=== PATIENT | female | born 1950 | race Caucasian/White ===

== ENCOUNTER 2023-06-11 07:32 | Outpatient (RCR) | payer MEDICARE ==
[2023-05-21 09:17] LABS: BASOPHILS % (AUTO) 1 % (0-10); EOSINOPHILS # (AUTO) 0.1 10^3/uL (0.0-0.3); EOSINOPHILS % (AUTO) 2 % (0-10); HEMATOCRIT 38 % (35-52); HEMOGLOBIN 12.3 g/dL (11.5-16.0); LYMPHOCYTES # (AUTO) 1.8 10^3/uL (1.0-4.0); LYMPHOCYTES % (AUTO) 26 % (12-44); MEAN CORPUSCULAR HEMOGLOBIN 32 pg (25-34); MEAN CORPUSCULAR HGB CONC 33 g/dL (32-36); MEAN CORPUSCULAR VOLUME 99 fL (80-99); MEAN PLATELET VOLUME 9.1 fL (9.0-12.2); MONOCYTES # (AUTO) 0.8 10^3/uL (0.0-1.0); MONOCYTES % (AUTO) 11 % (0-12); NEUTROPHILS # (AUTO) 4.2 10^3/uL (1.8-7.8); NEUTROPHILS % (AUTO) 60 % (42-75); PLATELET COUNT 205 10^3/uL (130-400)
[2023-05-21 09:39] LABS: ALBUMIN 4.1 GM/DL (3.2-4.5); BILIRUBIN,TOTAL 0.3 MG/DL (0.1-1.0); CALCIUM 9.5 MG/DL (8.5-10.1); CREATININE SERUM 0.9 MG/DL (0.60-1.30); POTASSIUM 3.9 MMOL/L (3.6-5.0); TOTAL PROTEIN 6.6 GM/DL (6.4-8.2)
[2023-05-21 09:57] VITALS: BP 166/93
[~2023-06-11] VITALS: Ht 157 cm; Wt 55.3 kg
[~2023-06-11 07:32] MED LIST: ALPR0.254 PO; AMLO-250 PO; ASPI-808 PO; ATROPINE INJ 0.4 MG/ML SDV IV SCH; BEVACIZUMAB BVZR IV SCH; D5W IV SCH; DEXAMETHASONE SODIUM PHOSPHATE IV SCH; DOCU-143 PO; DOXY100T2 PO; FAMOTIDINE INJ 20MG/2ML VIAL IV PRN; FERR325T24 PO; FLUOROURACIL IV SCH; FOSAPREPITANT (CANCER CENTER) 150 MG in NS (IVPB) CANCER CENTER ONLY 150 ML IV SCH; GLIM2TAB4 PO; HEParin (CENTRAL IV FLUSH) 500 UNIT/5 ML SYR IV PRN; IRINOTECAN HCL IV SCH; KETO10TA PO; LISI20TA26 PO; METF-399 PO; NS IV 1000 ML (CANCER CTR) IV SCH; NS IV SCH; PALONOSETRON HCL IV SCH; PANT40TA2 PO; PRAV20TA3 PO; SITA100T12 PO; diphenhydrAMINE 25 MG TABLET PO SCH
[2023-06-11 11:00] LABS: BASOPHILS # (AUTO) 0.1 10^3/uL (0.0-0.1); BASOPHILS % (AUTO) 1 % (0-10); EOSINOPHILS # (AUTO) 0.1 10^3/uL (0.0-0.3); EOSINOPHILS % (AUTO) 1 % (0-10); HEMATOCRIT 39 % (35-52); HEMOGLOBIN 12.4 g/dL (11.5-16.0); LYMPHOCYTES # (AUTO) 1.6 10^3/uL (1.0-4.0); LYMPHOCYTES % (AUTO) 18 % (12-44); MEAN CORPUSCULAR HEMOGLOBIN 32 pg (25-34); MEAN CORPUSCULAR HGB CONC 32 g/dL (32-36); MEAN CORPUSCULAR VOLUME 100 fL (80-99); MEAN PLATELET VOLUME 9.2 fL (9.0-12.2); MONOCYTES % (AUTO) 11 % (0-12); NEUTROPHILS # (AUTO) 6.4 10^3/uL (1.8-7.8); NEUTROPHILS % (AUTO) 70 % (42-75); PLATELET COUNT 239 10^3/uL (130-400); WHITE BLOOD COUNT 9.2 10^3/uL (4.3-11.0)
[2023-06-11 11:25] LABS: ALBUMIN 4.1 GM/DL (3.2-4.5); BILIRUBIN,TOTAL 0.3 MG/DL (0.1-1.0); CALCIUM 9.2 MG/DL (8.5-10.1); CREATININE SERUM 0.98 MG/DL (0.60-1.30); POTASSIUM 4.5 MMOL/L (3.6-5.0); TOTAL PROTEIN 6.7 GM/DL (6.4-8.2)
[2023-06-15] MEDS ORDERED: AMLO2.5T4 PO (14:05)
[2023-06-15] MEDS ORDERED: METF-399 PO (14:05)
[2023-06-15] MEDS ORDERED: ACHD5005 PO (14:05)
[2023-06-15] MEDS ORDERED: CETI10CA PO (14:05)
[2023-06-15] MEDS ORDERED: ONDA8TAB13 SL (14:05)
[2023-06-15] MEDS ORDERED: LISI20TA26 PO (14:05)
[2023-06-15] MEDS ORDERED: MORP30PC IV (14:05)
[2023-06-15] MEDS ORDERED: PRAV20TA3 PO (14:05)
[2023-06-15] MEDS ORDERED: ALPR1TAB7 PO (14:05)
[2023-06-15] MEDS ORDERED: GLIM2TAB4 PO (14:05)
[2023-06-15] MEDS ORDERED: ACYC5CRE8 TP (14:05)
== END 2023-06-14 | disposition home or self-care (01) ==
LOC: ONC 07:32 → MERGE 07:32
PROVIDERS: ATTEND Internal Medicine Hematology & Oncology
DX: Z51.11 Encounter for antineoplastic chemotherapy (principal); Z45.2 Encounter for adjustment and management of vascular access device; C18.2 Malignant neoplasm of ascending colon; C77.2 Secondary and unspecified malignant neoplasm of intra-abdominal lymph nodes; D50.8 Other iron deficiency anemias; I25.10 Atherosclerotic heart disease of native coronary artery without angina pectoris; F41.1 Generalized anxiety disorder; K29.70 Gastritis, unspecified, without bleeding
CPT/HCPCS: 80053; 82378; 85025; 96360; 96367; 96375; 96411; 96413; 96417; 96521; G0463; 36591; 99214

== ENCOUNTER 2023-06-15 13:19 | Outpatient (CLI) | payer MEDICARE ==
[~2023-06-15] VITALS: Ht 157.5 cm; Wt 54.6 kg
[~2023-06-15 13:19] MED LIST changes: -ATROPINE INJ 0.4 MG/ML SDV IV SCH; -BEVACIZUMAB BVZR IV SCH; -D5W IV SCH; -DEXAMETHASONE SODIUM PHOSPHATE IV SCH; -FAMOTIDINE INJ 20MG/2ML VIAL IV PRN; -FLUOROURACIL IV SCH; -FOSAPREPITANT (CANCER CENTER) 150 MG in NS (IVPB) CANCER CENTER ONLY 150 ML IV SCH; -HEParin (CENTRAL IV FLUSH) 500 UNIT/5 ML SYR IV PRN; -IRINOTECAN HCL IV SCH; -NS IV 1000 ML (CANCER CTR) IV SCH; -NS IV SCH; -PALONOSETRON HCL IV SCH; -diphenhydrAMINE 25 MG TABLET PO SCH
[2023-06-15] MEDS ORDERED: LISI20TA26 PO (14:05)
[2023-06-15] MEDS ORDERED: MORP30PC IV (14:05)
[2023-06-15] MEDS ORDERED: CETI10CA PO (14:05)
[2023-06-15] MEDS ORDERED: ALPR1TAB7 PO (14:05)
[2023-06-15] MEDS ORDERED: GLIM2TAB4 PO (14:05)
[2023-06-15] MEDS ORDERED: ACHD5005 PO (14:05)
[2023-06-15] MEDS ORDERED: METF-399 PO (14:05)
[2023-06-15] MEDS ORDERED: ONDA8TAB13 SL (14:05)
[2023-06-15] MEDS ORDERED: AMLO2.5T4 PO (14:05)
[2023-06-15] MEDS ORDERED: ACYC5CRE8 TP (14:05)
[2023-06-15] MEDS ORDERED: PRAV20TA3 PO (14:05)
== END 2023-06-15 15:02 | disposition home or self-care (01) ==
LOC: PREOP 13:19
PROVIDERS: ATTEND Surgery
DX: Z01.818 Encounter for other preprocedural examination (principal)

== ENCOUNTER 2023-06-20 06:53 | Day surgery (SDC) | payer MEDICARE ==
[~2023-06-20] VITALS: Ht 158 cm; Wt 54.6 kg
[2023-06-20] VITALS (13 sets, daily range): BP systolic 145–185; BP diastolic 67–84
[~2023-06-20 06:53] MED LIST changes: +ACHD5005 PO; +ACYC5CRE8 TP; +ALPR1TAB7 PO; +AMLO2.5T4 PO; +CETI10CA PO; +MORP30PC IV; +ONDA8TAB13 SL
[2023-06-20] MEDS ORDERED: ceFAZolin INJECTION 2,000 MG in NS (IVPB) 50 ML 50 ML IV ONE (07:15)
[2023-06-20] MEDS ORDERED: LACTATED RINGERS 1,000 ML 1,000 ML IV PRN (07:15)
[2023-06-20] MEDS ORDERED: SEVOFLURANE (ULTANE) 15 ML INHAL SOLN ONE ×2 (07:43→10:59)
[2023-06-20] MEDS ORDERED: LIDOCAINE PF 2% 5 ML VIAL ONE (07:43)
[2023-06-20] MEDS ORDERED: ROCURONIUM 50 MG/5 ML VIAL IV ONE (07:43)
[2023-06-20] MEDS ORDERED: ONDANSETRON INJECTION 4 MG/2 ML (SDV) ONE (07:43)
[2023-06-20] MEDS ORDERED: fentaNYL INJECTION 100 MCG/2 ML VIAL ONE (07:43)
[2023-06-20] MEDS ORDERED: proPOfol INJECTION 200 MG/20 ML VIAL IV ONE (07:43)
[2023-06-20] MEDS ORDERED: CATHETER FLUSH 10 ML SYR IVP PRN (07:45)
--- NOTE | 2023-06-20 08:37 | Progress Note-Pre Operative ---
Pre-Operative Progress Note Date of Available H&P: Jun 14, 2023 Date H&P Reviewed: Jun 20, 2023 Time H&P Reviewed: 08:31 History & Physical: H&P Reviewed, Patient Examed, No changes noted Pre-Operative Diagnosis: Incarcerated Ventral/Incisional hernia JOANN HANEY DO Jun 20, 2023 08:37
[2023-06-20] MEDS ORDERED: LIDOCAINE/EPI 1%-1:200,000 (XYLOCAINE) 30 ML VIAL ONE (09:03)
[2023-06-20] MEDS ORDERED: LIDOCAINE/EPI 1%-1:200,000 (XYLOCAINE) 30 ML VIAL INJ ONE (10:05)
--- NOTE | 2023-06-20 10:55 | Progress Note-Post Operative ---
Post-Operative Progess Note Surgeon (s)/Research Physiologist (s) Surgeon JOANN HANEY DO Research Physiologist: Winsome Pre-Operative Diagnosis Incarcerated Ventral/Incisional hernia Post-Operative Diagnosis Same Procedure & Operative Findings Date of Procedure 06/20/23 Procedure Performed/Findings PROCEDURE: Laparoscopic Ventral/Incisional hernia repair with mesh - Robotic COMPLICATIONS: None. INDICATIONS: The patient is a 72yo female with an incarcerated ventral/incisional hernia, w hich has continued to increase in size and cause extreme discomfort; she was even having pain today before procedure. The patient was explained the risk and benefits of the procedure and wished to proceed with the procedure. Consent was signed on the chart. DESCRIPTION OF PROCEDURE: The patient was taken into the operating suite, prepped and draped in sterile fashion. Surgical pause was performed. Local anesthetic was infiltrated in left upper quadrant. A #11 blade scalpel was used to make a small skin incision. Cautery was used to dissect down to the fascia, which was then scored and divided the muscle, went through the posterior sheath and a balloon trocar was inserted into the abdomen. The abdomen was then insufflated. There was some omentum jose ck in the fascial defect, easily came out and then measured defect to be approximately 9cm. An 8 mm robotic trocar was placed in the left lower quadrant under visualiation and another 8 mm trocar was placed across from umbilicus. The defect was then closed using 0 Strattafix running suture; it was so large I used two. One from the top to about half way and then another from the bottom of the incision and then back up. Elected to use a [id number] oval Echo Ventralight mesh which was inserted in the abdomen grabbed through a stab incision at top of previous incision. Placed a 5mm Versa-step port in the right mid abdomen, under direct visualization. The balloon was inflated on the mesh. Circumferential tacks were placed with a SecureStrap Tacker. The balloon was then removed and inner crown was created as well. The mesh was tacked with pressure being decreased. The 12 mm fascial defect was then closed using 0 Vicryl in a figure of eight fashion. The abdomen was then desufflated,the trocars were removed. The skin was then closed using 4-0 Monocryl in a running subcuticular fashion. The abdomen was washed and dried and Skin Affix was placed over the incisions. The patient tolerated procedure well without any complications. She was taken to recovery room in stable condition. Dr. Schumacher assisted on this case helping to make incisions, close incisions, pass suture and help with tacking mesh. Anesthesia Type GET Estimated Blood Loss Estimated blood loss (mL): scant Specimens/Packing Specimens Removed none JOANN HANEY DO Jun 20, 2023 10:55
[2023-06-20] MEDS ORDERED: ACHD5005 PO (10:56)
--- NOTE | 2023-06-20 10:58 | Discharge Inst-Surgical ---
Discharge Inst-Surgical Depart Medication/Instructions New, Converted or Re-Newed RX: Transmitted to Pharmacy Patient Instructions Follow up Appt: Make appointment for 1 week. [phone] Instructions: No lifting greater than 20 pounds. No strenuous activity. May shower in 24 hours, no tub bath or soaking. Use incentive spirometer at home as directed. No Smoking Skin/Wound Care: May remove bandages in am. You need to leave the Dermabond on incision it will fall off on it's own. Symptoms to Report: Appetite Changes, Extremity Discoloration, Numbness/Tingling, Swelling Increased, Bleeding Excessive, Eyesight Changes, Pain Increased, Urine Color Change, Constipation(Persistent), Fever over 101 degree F, Pain/Pressure in chest, Urinating Difficulty, Cough Up/Vomit Blood, Heart Beat Irreg/Pounding, Pain/Pressure in jaw, Cramps in feet or legs, Lightheadedness, Pain/Pressure in shoulder, Diarrhea(Persistent), Memory Changes Suddenly, Questions/Concerns, Weight gain consecutive days, Dizziness/Fainting, Nausea/Vomiting, Shortness of Breath, Weight gain over 2 pounds If questions or concerns contact your physician Or seek help at emergency department. Activity Activity as Tolerated: Yes Activity Instructions: Avoid Stress to Incision Driving Instructions: No Driving/Refer to Dr. Roman Discharge Diet: No Restrictions Diet After 24 Hours: Clear Liquid if Nauseous If Any Problems/Questions/Issu: Contact Your Physician, Go to Emergency Room Skin/Wound Care Infection Signs and Symptoms: Increased Redness, Foul Odor of Wound, Increased Drainage, Skin Itchy or Has a Rash, Increased Swelling, Temperature Above 101 F Wound Care Comment: heating pad to shoulder or neck tonight for pain Bathing Instructions: Shower Stitches/[place]/Dermabond Dis: Dermabond Ice Pack: Ice On and Off Site JOANN HANEY DO Jun 20, 2023 10:58
--- NOTE | 2023-06-20 11:06 | Anesthesia-General Post-Op ---
General Patient Condition Mental Status/LOC: Same as Preop Cardiovascular: Satisfactory Nausea/Vomiting: Absent Respiratory: Satisfactory Pain: Controlled Complications: Absent Post Op Complications Complications None Follow Up Care/Instructions Patient Instructions None needed. Anesthesia/Patient Condition Patient Condition Patient is doing well, no complaints, stable vital signs, no apparent adverse anesthesia problems. No complications reported per nursing. RAÚL MCDANIEL CRNA Jun 20, 2023 11:06
[2023-06-20] MEDS: ONDANSETRON INJECTION 4 MG/2 ML (SDV) IVP PRN ×3 (11:15→20:31)
[2023-06-20] MEDS ORDERED: MEPERIDINE INJ 50 MG/ML VIAL IVP ONE (11:15)
[2023-06-20] MEDS ORDERED: morphine INJ 10 MG/ML 1ML (SYR OR VIAL) IVP ONE (11:15)
[2023-06-20] MEDS ORDERED: HYDROcodone/ACETAMINOPHEN 5 MG/325 MG TABLET ONE (13:27)
[2023-06-20] MEDS ORDERED: HYDROcodone/ACETAMINOPHEN 5 MG/325 MG TABLET PO ONE (13:45)
[2023-06-20] MEDS ORDERED: morphine INJ 10 MG/ML 1ML (SYR OR VIAL) ONE (13:56)
[2023-06-20] MEDS ORDERED: ALPRAZolam 0.25 MG TABLET PO ONE ×2 (14:00→21:30)
[2023-06-20] MEDS ORDERED: morphine INJ 4 MG/ML 1 ML (VIAL/SYRINGE) IVP ONE (14:00)
[2023-06-20] MEDS ORDERED: morphine INJ 10 MG/ML 1ML (SYR OR VIAL) IVP PRN (14:45)
[2023-06-20] MEDS ORDERED: LevoFLOXacin 250 MG TABLET PO NR (16:15)
[2023-06-20] MEDS: LACTATED RINGERS 1,000 ML 1,000 ML IV SCH ×2 (16:24→22:57)
[2023-06-20] MEDS: morphine INJ 4 MG/ML 1 ML (VIAL/SYRINGE) IV PRN ×2 (16:25→19:59)
[2023-06-20] MEDS ORDERED: amLODIPine 5 MG TABLET PO NR (19:00)
[2023-06-20 20:12] LABS: BASOPHILS % (AUTO) 0 % (0-10); EOSINOPHILS % (AUTO) 0 % (0-10); HEMATOCRIT 35 % (35-52); LYMPHOCYTES % (AUTO) 14 % (12-44); MEAN CORPUSCULAR HEMOGLOBIN 32 pg (25-34); MEAN CORPUSCULAR HGB CONC 34 g/dL (32-36); MEAN CORPUSCULAR VOLUME 95 fL (80-99); MEAN PLATELET VOLUME 9.6 fL (9.0-12.2); MONOCYTES # (AUTO) 1.1 10^3/uL (0.0-1.0); MONOCYTES % (AUTO) 8 % (0-12); NEUTROPHILS # (AUTO) 11.3 10^3/uL (1.8-7.8); NEUTROPHILS % (AUTO) 78 % (42-75); PLATELET COUNT 225 10^3/uL (130-400); WHITE BLOOD COUNT 14.6 10^3/uL (4.3-11.0)
[2023-06-20] MEDS ORDERED: ALPRAZolam 0.25 MG TABLET ONE (20:43)
[2023-06-20] MEDS ORDERED: DEXTROSE 50% 50 ML (IMS) SYR ONE (21:22)
[2023-06-20] MEDS ORDERED: ONDANSETRON INJECTION 4 MG/2 ML (SDV) IVP ONE (21:30)
[2023-06-20] MEDS ORDERED: DEXTROSE 50% 50 ML (IMS) SYR IV PRN (21:30)
[2023-06-21] MEDS: morphine INJ 4 MG/ML 1 ML (VIAL/SYRINGE) IV PRN ×4 (01:39→11:40)
[2023-06-21] MEDS: LACTATED RINGERS 1,000 ML 1,000 ML IV SCH ×2 (01:40→12:27)
[2023-06-21] MEDS: ONDANSETRON INJECTION 4 MG/2 ML (SDV) IVP PRN ×3 (01:40→14:12)
[2023-06-21 04:00] VITALS: BP 137/67
[2023-06-21 06:03] LABS: BASOPHILS % (AUTO) 0 % (0-10); EOSINOPHILS % (AUTO) 0 % (0-10); HEMATOCRIT 35 % (35-52); HEMOGLOBIN 11.9 g/dL (11.5-16.0); LYMPHOCYTES # (AUTO) 1.4 10^3/uL (1.0-4.0); LYMPHOCYTES % (AUTO) 10 % (12-44); MEAN CORPUSCULAR HEMOGLOBIN 32 pg (25-34); MEAN CORPUSCULAR HGB CONC 34 g/dL (32-36); MEAN CORPUSCULAR VOLUME 95 fL (80-99); MEAN PLATELET VOLUME 9.6 fL (9.0-12.2); MONOCYTES # (AUTO) 1.3 10^3/uL (0.0-1.0); MONOCYTES % (AUTO) 10 % (0-12); NEUTROPHILS # (AUTO) 10.5 10^3/uL (1.8-7.8); NEUTROPHILS % (AUTO) 79 % (42-75); PLATELET COUNT 196 10^3/uL (130-400); WHITE BLOOD COUNT 13.3 10^3/uL (4.3-11.0)
[2023-06-21 06:37] LABS: ALBUMIN 3.5 GM/DL (3.2-4.5); BILIRUBIN,TOTAL 0.4 MG/DL (0.1-1.0); CALCIUM 8.7 MG/DL (8.5-10.1); CREATININE SERUM 0.76 MG/DL (0.60-1.30); POTASSIUM 4.1 MMOL/L (3.6-5.0); TOTAL PROTEIN 5.7 GM/DL (6.4-8.2)
[2023-06-21] MEDS ORDERED: metFORMIN 500 MG TABLET PO SCH (07:00)
[2023-06-21] MEDS ORDERED: GLIMEPIRIDE 2 MG TABLET PO SCH (07:00)
[2023-06-21 07:17] VITALS: BP 155/71
--- NOTE | 2023-06-21 07:29 | Progress Note - Surgery ---
TOMMY CARLSON 06/21/23 0729: Subjective Date Seen by a Provider: Jun 21, 2023 Time Seen by a Provider: 07:23 Subjective/Events-last exam Pt states she feels very poorly, in pain rated at 9/10 at hernia repair site. Pt states if she can relax, it gets better, but then it tenses up like a muscle spa sm and is very painful. Pain does not radiate anywhere else. Pt states the pain feels like you haven't worked out in a long time and then you work out and get really sore, except 100x worse, a sore pain. Pain is worse when she moves. Pt has only drank water since surgery and nothing to eat. Pt has not had a BM since surgery. Pt has been able to urinate since surgery. Pt states pain was pretty bad before the surgery but feels worse now. Pt says pain was in RLQ and now it is localized to where the surgery was and pain in RLQ is gone. Pt states she is on morphine and it helps, but it is not enough when she has to cough or move. Objective Exam Vital Signs Date Time Temp Pulse Resp B/P (MAP) Pulse Ox O2 Delivery O2 Flow Rate FiO2 06/21/23 07:17 36.2 80 17 155/71 (99) 94 Room Air 06/21/23 04:00 36.4 81 18 137/67 (90) 94 Room Air 06/20/23 23:38 36.4 51 18 145/67 (93) 95 Room Air 06/20/23 19:59 36.2 75 16 185/76 (112) 96 Room Air 06/20/23 19:50 Room Air 06/20/23 16:00 36.1 77 17 185/73 (110) 98 Room Air 06/20/23 15:19 Room Air 06/20/23 12:55 36.1 75 22 169/79 (109) 100 Room Air 10.00 10.00 06/20/23 12:25 36.1 75 22 169/79 (109) 100 Room Air 10.00 10.00 06/20/23 12:00 36.1 75 22 169/79 100 Room Air 06/20/23 12:00 Room Air 06/20/23 11:50 36.1 18 166/77 (106) 99 Room Air 06/20/23 11:45 Room Air 9/6/23 11:40 21 160/73 (102) 100 Room Air 06/20/23 11:30 17 162/76 (104) 100 OxyMask 10.00 06/20/23 11:30 OxyMask 10.00 06/20/23 11:20 19 154/74 (100) 100 OxyMask 10.00 06/20/23 11:15 OxyMask 10.00 06/20/23 11:10 16 159/71 (100) 100 OxyMask 10.00 06/20/23 11:00 OxyMask 10.00 06/20/23 11:00 36.1 16 165/84 (111) 100 OxyMask 10.00 06/20/23 07:57 35.8 75 18 146/71 (96) 99 Room Air I & O 06/21/23 07:00 Intake Total 1250 ml Output Total 1000 ml Balance 250 ml Capillary Refill : General Appearance: Moderate Distress Respiratory: Chest Non Tender, Lungs Clear, Normal Breath Sounds, No Accessory Muscle Use, No Respiratory Distress Cardiovascular: Regular Rate, Rhythm, No Murmur Peripheral Pulses: 2+ Carotid (R), 2+ Carotid (L), 2+ Dorsalis Pedis (R), 2+ Left Dors-Pedis (L), 2+ Radial Pulses (R), 2+ Radial Pulses (L) Gastrointestinal: no organomegaly, no pulsatile mass (hard to visualize site through bandages), tenderness (over hernia repair site, no where else) Neurologic/Psychiatric: Alert, Oriented x3 (person, place, year) Skin: Normal Color, Warm/Dry Results Lab Laboratory Tests 06/20/23 07:43: Glucometer 77 06/20/23 19:54: White Blood Count 14.6H, Red Blood Count 3.71L, Hemoglobin 12.0, Hematocrit 35, Mean Corpuscular Volume 95, Mean Corpuscular Hemoglobin 32, Mean Corpuscular Hemoglobin Concent 34, Red Cell Distribution Width 14.8H, Platelet Count 225, Mean Platelet Volume 9.6, Immature Granulocyte % (Auto) 1, Neutrophils (%) (Auto) 78H, Lymphocytes (%) (Auto) 14, Monocytes (%) (Auto) 8, Eosinophils (%) (Auto) 0, Basophils (%) (Auto) 0, Neutrophils # (Auto) 11.3H, Lymphocytes # (Auto) 2.0, Monocytes # (Auto) 1.1H, Eosinophils # (Auto) 0.0, Basophils # (Auto) 0.0, Immature Granulocyte # (Auto) 0.1 06/20/23 21:01: Glucometer 59*L 06/20/23 22:04: Glucometer 131H 06/21/23 05:46: Glucometer 101 06/21/23 05:53: White Blood Count 13.3H, Red Blood Count 3.70L, Hemoglobin 11.9, Hematocrit 35, Mean Corpuscular Volume 95, Mean Corpuscular Hemoglobin 32, Mean Corpuscular Hemoglobin Concent 34, Red Cell Distribution Width 15.0H, Platelet Count 196, Mean Platelet Volume 9.6, Immature Granulocyte % (Auto) 1, Neutrophils (%) (Auto) 79H, Lymphocytes (%) (Auto) 10L, Monocytes (%) (Auto) 10, Eosinophils (%) (Auto) 0, Basophils (%) (Auto) 0, Neutrophils # (Auto) 10.5H, Lymphocytes # (Auto) 1.4, Monocytes # (Auto) 1.3H, Eosinophils # (Auto) 0.0, Basophils # (Auto) 0.0, Immature Granulocyte # (Auto) 0.1, Sodium Level 133L, Potassium Level 4.1, Chloride Level 99, Carbon Dioxide Level 25, Anion Gap 9, Blood Urea Nitrogen 7, Creatinine 0.76, Estimat Glomerular Filtration Rate 83, BUN/Creatinine Ratio 9, Glucose Level 103, Calcium Level 8.7, Corrected Calcium 9.1, Total Bilirubin 0.4, Aspartate Amino Transf (AST/SGOT) 12, Alanine Aminotransferase (ALT/SGPT) 9, Alkaline Phosphatase 61, Total Protein 5.7L, Albumin 3.5 Assessment/Plan Assessment/Plan Assessment/Plan Post-laparoscopic ventral incisional hernia repair - pain control as needed and continue to monitor pain outpatient as it heals unless more serious side effect arises T2DM - continue current medication regiment Colon cancer - continue chemotherapy when able HBP - continue current medicatoin regiment SOLO BAH DO 06/21/23 1332: Subjective Time Seen by a Provider: 12:38 Subjective/Events-last exam Pt seen and examined, states she still has severe pain. Review of Systems Pulmonary: No Dyspnea, No Cough Cardiovascular: No: Chest Pain, Palpitations Gastrointestinal: Abdominal Pain; No: Nausea, Vomiting Objective Exam General Appearance: Moderate Distress (secondary to pain), Thin HEENT: PERRL/EOMI Respiratory: Chest Non Tender, Lungs Clear, Normal Breath Sounds, No Accessory Muscle Use, No Respiratory Distress Cardiovascular: Regular Rate, Rhythm, No Murmur Gastrointestinal: no organomegaly, no pulsatile mass (hard to visualize site through bandages), tenderness (over hernia repair site, no where else), other (incisions c/d/i) Neurologic/Psychiatric: Alert, Oriented x3 (person, place, year) Skin: Normal Color, Warm/Dry Assessment/Plan Assessment/Plan Assessment/Plan Status Post-laparoscopic ventral incisional hernia repair - pain control as needed and continue to monitor pain outpatient as it heals unless more serious side effect arises T2DM - continue current medication regiment Colon cancer - continue chemotherapy when able HBP - continue current medicatoin regiment Will d/c IV and d/c home. Will send home with pain meds. Her pain is slightly better, abdomen is not distended and Hg did not change at all. F/U in one week. Supervisory-Addendum Brief Verification & Attestation Participated in pt care: history, MDM, physical Personally performed: exam, history, MDM, supervision of care Care discussed with: Medical Student Procedures: n/a Verification and Attestation of Medical Student E/M Service A medical student performed and documented this service. I then reviewed and verified all information documented by the medical student and made modificat ions to such information, when appropriate. I personally performed a physical exam, medical decision making and then discussed any differences between the notes and made revisions as necessary to create one note. Solo Bah , 06/21/23 , 13:32 TOMMY CARLSON Jun 21, 2023 07:29 SOLO BAH DO Jun 21, 2023 13:32
[2023-06-21] MEDS ORDERED: PANTOPRAZOLE INJECTION 40 MG VIAL IVP SCH (09:00)
[2023-06-21] MEDS ORDERED: amLODIPine 5 MG TABLET PO SCH (09:00)
[2023-06-21 12:37] VITALS: BP 146/69
[2023-06-21] MEDS ORDERED: OXYC-556 PO (13:33)
== END 2023-06-21 14:55 | disposition home or self-care (01) ==
LOC: SDC 06:53 → 4TH 15:03 → SDC 06-21 14:55
PROVIDERS: ATTEND Surgery
DX: K43.0 Incisional hernia with obstruction, without gangrene (principal); K43.6 Other and unspecified ventral hernia with obstruction, without gangrene; C18.9 Malignant neoplasm of colon, unspecified; E11.9 Type 2 diabetes mellitus without complications; I10 Essential (primary) hypertension; Z28.310 Unvaccinated for COVID-19; Z87.891 Personal history of nicotine dependence; Z79.84 Long term (current) use of oral hypoglycemic drugs; Z79.891 Long term (current) use of opiate analgesic
CPT/HCPCS: 49594; 80053; 82947 ×2; 85025 ×2; 87081; 94664; C1781; 36415

== ENCOUNTER 2023-07-28 15:20 | Emergency (ER) | payer MEDICARE ==
[~2023-07-28 15:20] MED LIST changes: +OXYC-556 PO
[2023-07-28] MEDS ORDERED: NS IV 1000 ML 1,000 ML IV STA (15:37)
--- NOTE | 2023-07-28 15:44 | ED GI ---
General Chief Complaint: General Problems/Pain Stated Complaint: PT ON CHEMO, DIARRHEA, CANT EAT, THINK HEMOGL LOW Nursing Triage Note: PT STATES SHE HAS FELT WEAK FOR THE PAST 3 WEEKS, HAS HAD DIARRHEA, HAD CHEMO LAST SUNDAY FOR COLON CA AND WAS TOLD HER HEMOGLOBIN WAS LOW Source of Information: Patient Exam Limitations: No Limitations History of Present Illness Date Seen by Provider: Jul 28, 2023 Time Seen by Provider: 15:26 Initial Comments 72-year-old female with past medical history of metastatic colon cancer status post colectomy now on chemotherapy coming in due to vomiting and diarrhea. Had chemo 3 days ago on Sunday, went home on a pump which was taken off yes day. This typically causes significant vomiting and diarrhea for her which has been happening. She has not had any nausea meds today. She is concerned that her hemoglobin could be low as well. Denies any severe abdominal pain, fever, chest pain, shortness of breath, rash, dysuria, or any other concerns. Allergies and Home Medications Allergies Coded Allergies: leucovorin (Verified Allergy, Intermediate, 06/19/23) maybe oxaliplatin or leucovorin causing rash oxaliplatin (Verified Allergy, Unknown, 06/15/23) elevated blood pressure Patient Home Medication List Home Medication List Reviewed: Yes ALPRAZolam (ALPRAZolam) 0.25 Mg Tablet, 0.25 MG PO BID PRN for ANXIETY, (Reported) Entered as Reported by: JES CORTEZ on 08/12/21 1044 Acyclovir (Acyclovir) 5 % Cream..g., 5 GM TP, (Reported) Entered as Reported by: Mikala Dolan on 06/15/23 1405 Alprazolam (Alprazolam) 1 Mg Tablet, 1 MG PO, (Reported) Entered as Reported by: Mikala Dolan on 06/15/23 1405 Amlodipine Besylate (Amlodipine Besylate) 5 Mg Tablet, 5 MG PO DAILY, (Reported) Entered as Reported by: JOELLE WILLIAM on 06/24/21 1059 Amlodipine Besylate (Amlodipine Besylate) 2.5 Mg Tablet, 2.5 MG PO DAILY, (Reported) Entered as Reported by: Mikala Dolan on 06/15/23 1405 Cetirizine HCl (Zyrtec) 10 Mg Capsule, 10 MG PO, (Reported) Entered as Reported by: Mikala Dolan on 06/15/23 140 Docusate Sodium (Colace) 100 Mg Capsule, 100 MG PO DAILY PRN for CONSTIPATION- 1ST LINE, (Reported) Entered as Reported by: JES CORTEZ on 08/12/21 1044 Glimepiride (Glimepiride) 2 Mg Tablet, 2 MG PO BID, (Reported) Entered as Reported by: JES CORTEZ on 08/12/21 1044 Glimepiride (Glimepiride) 2 Mg Tablet, 2 MG PO, (Reported) Entered as Reported by: Mikala Dolan on 06/15/23 140 Lisinopril (Lisinopril) 20 Mg Tablet, 20 MG PO BID, (Reported) Entered as Reported by: JES CORTEZ on 08/12/21 104 Lisinopril (Lisinopril) 20 Mg Tablet, 20 MG PO DAILY, (Reported) Entered as Reported by: Mikala Dolan on 06/15/23 140 Metformin HCl (Metformin HCl) 1,000 Mg Tablet, 1,000 MG PO BID, (Reported) Entered as Reported by: JES CORTEZ on 08/12/21 1044 Metformin HCl (Metformin HCl) 1,000 Mg Tablet, 1,000 MG PO, (Reported) Entered as Reported by: Mikala Dolan on 06/15/23 140 Morphine Sulfate/0.9% NaCl/Pf (Morphine 30 mg/30 ml-NaCl Syrg) 30 Mg/30 Ml (1 Mg/Ml) Barrel Roller Operator.syring, 30 MG IV, (Reported) Entered as Reported by: Mikala Dolan on 06/15/23 140 Ondansetron (Ondansetron Odt) 8 Mg Tab.rapdis, 8 MG SL Q4H PRN for NAUSEA/VOMITING, (Reported) Entered as Reported by: Mikala Dolan on 06/15/23 140 Oxycodone HCl/Acetaminophen (Oxycodone-Acetaminophen 10-325) 10 Mg-325 Mg Tablet, 1 EACH PO Q6H PRN for PAIN-MODERATE Prescribed by: JOANN HANEY on 06/21/23 1334 Pantoprazole Sodium (Protonix) 40 Mg Tablet.dr, 40 MG PO DAILY, (Reported) Entered as Reported by: JULIO HAMILTON on 06/05/22 0811 Pravastatin Sodium (Pravastatin Sodium) 20 Mg Tablet, 20 MG PO DAILY, (Reported) Entered as Reported by: JOELLE WILLIAM on 06/24/21 1059 Pravastatin Sodium (Pravastatin Sodium) 20 Mg Tablet, 20 MG PO, (Reported) Entered as Reported by: Mikala Dolan on 06/15/23 1405 Promethazine HCl (Promethazine Tablet) 25 Mg Tablet, 25 MG PO Q6H PRN for NAUSEA/VOMITING Prescribed by: RANGEL AWAD on 07/28/23 1631 Review of Systems Review of Systems Constitutional: No fever EENTM: No Symptoms Reported Respiratory: No Symptoms Reported Cardiovascular: No Symptoms Reported Gastrointestinal: See HPI Genitourinary: No Symptoms Reported Musculoskeletal: no symptoms reported Skin: no symptoms reported Psychiatric/Neurological: No Symptoms Reported Endocrine: No Symptoms Reported Hematologic/Lymphatic: No Symptoms Reported Past Dfxxwpu-Iquwkr-Feqibn Hx Patient Social History Tobacco Use?: Yes Tobacco type used: Cigarettes Smoking Status: Current Everyday Smoker Substance use?: No Alcohol Use?: No Immunizations Up To Date First/Initial COVID19 Vaccinat: no Second COVID19 Vaccination Osmel: no Third COVID19 Vaccination Date: no Seasonal Allergies Seasonal Allergies: No Past Medical History Surgery/Hospitalization HX: RAVI; APPY; HYSTERECTOMY; COLON RESECTION; HERNIA REPAIR WITH MESH; KIDNEY STENT PLACEMENT Surgeries: Yes Appendectomy, Gallbladder, Hysterectomy Respiratory: No Currently Using CPAP: No Currently Using BIPAP: No Cardiac: Yes High Cholesterol, Hypertension Neurological: Yes (LEFT SIDED WEAKNESS) 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 Genitourinary: No (RIGHT URETHRA KIDNEY STENT) Kidney Stones Gastrointestinal: Yes (SIDE EFFECT OF CHEMO) Gastroesophageal Reflux Musculoskeletal: No Endocrine: Yes Diabetes, Non-Insulin dep HEENT: No Loss of Vision: Bilateral Hearing Impairment: Denies Cancer: Yes Colon Did You Recieve Any Treatments: Yes What Type of Treatment Did You: Chemotherapy, Surgical Intervention Psychosocial: No Anxiety Integumentary: Yes (ROSACEA) Psoriasis Blood Disorders: No Adverse Reaction/Blood Tranf: No Physical Exam Vital Signs Vital Signs - First Documented 07/28/23 15:30 Temp 37.0 Pulse 88 Resp 18 B/P (MAP) 167/84 (111) Pulse Ox 100 Capillary Refill : Height/Weight/BMI Height: '" Weight: lbs. oz. kg; 21.87 BMI Method: General Appearance: WD/WN, other (Actively retching into a bowl) HEENT: PERRL/EOMI, normal ENT inspection, pharynx normal Neck: non-tender, full range of motion, supple, normal inspection Respiratory: chest non-tender, lungs clear, normal breath sounds, no respiratory distress, no accessory muscle use Cardiovascular: regular rate, rhythm, no edema Gastrointestinal: normal bowel sounds, non tender, soft; No distended, No guarding, No rebound Extremities: normal range of motion, non-tender, normal inspection, no pedal edema, no calf tenderness, normal capillary refill Back: normal inspection, no CVA tenderness Neurologic/Psychiatric: no motor/sensory deficits, alert, normal mood/affect Skin: normal color, warm/dry Progress/Results/Core Measures Results/Orders Lab Results Laboratory Tests Test 07/28/23 15:40 Range/Units White Blood Count 15.0 H 4.3-11.0 10^3/uL Red Blood Count 3.85 3.80-5.11 10^6/uL Hemoglobin 11.6 11.5-16.0 g/dL Hematocrit 35 35-52 % Mean Corpuscular Volume 92 80-99 fL Mean Corpuscular Hemoglobin 30 25-34 pg Mean Corpuscular Hemoglobin Concent 33 32-36 g/dL Red Cell Distribution Width 15.8 H 10.0-14.5 % Platelet Count 330 130-400 10^3/uL Mean Platelet Volume 9.3 9.0-12.2 fL Immature Granulocyte % (Auto) 1 % Neutrophils (%) (Auto) 85 H 42-75 % Lymphocytes (%) (Auto) 12 12-44 % Monocytes (%) (Auto) 2 0-12 % Eosinophils (%) (Auto) 1 0-10 % Basophils (%) (Auto) 0 0-10 % Neutrophils # (Auto) 12.7 H 1.8-7.8 10^3/uL Lymphocytes # (Auto) 1.8 1.0-4.0 10^3/uL Monocytes # (Auto) 0.2 0.0-1.0 10^3/uL Eosinophils # (Auto) 0.1 0.0-0.3 10^3/uL Basophils # (Auto) 0.0 0.0-0.1 10^3/uL Immature Granulocyte # (Auto) 0.1 0.0-0.1 10^3/uL Prothrombin Time 13.8 12.2-14.7 SEC INR Comment 1.0 0.8-1.4 Activated Partial Thromboplast Time 27 24-35 SEC Sodium Level 134 L 135-145 MMOL/L Potassium Level 4.0 3.6-5.0 MMOL/L Chloride Level 100 98-107 MMOL/L Carbon Dioxide Level 22 21-32 MMOL/L Anion Gap 12 5-14 MMOL/L Blood Urea Nitrogen 13 7-18 MG/DL Creatinine 0.83 0.60-1.30 MG/DL Estimat Glomerular Filtration Rate 75 BUN/Creatinine Ratio 16 Glucose Level 217 H 70-105 MG/DL Calcium Level 8.8 8.5-10.1 MG/DL Corrected Calcium 9.1 8.5-10.1 MG/DL Total Bilirubin 0.6 0.1-1.0 MG/DL Aspartate Amino Transf (AST/SGOT) 12 5-34 U/L Alanine Aminotransferase (ALT/SGPT) 8 0-55 U/L Alkaline Phosphatase 66 40-136 U/L Total Protein 6.3 L 6.4-8.2 GM/DL Albumin 3.6 3.2-4.5 GM/DL Lipase 91 H 8-78 U/L My Orders Orders - RANGEL AWAD MD Cbc And Automated Diff (07/28/23 15:37) Comprehensive Metabolic Panel (07/28/23 15:37) Lipase (07/28/23 15:37) Protime With Inr (07/28/23 15:37) Partial Thromboplastin Time (07/28/23 15:37) Implanted Port: Access (07/28/23 15:37) Ns Iv 1000 Ml (Ns Iv 1000 Ml) (07/28/23 15:37) Ondansetron Injection (Ondansetron Inj (07/28/23 15:45) Promethazine Injection (Promethazine I (07/28/23 15:45) Manual Differential (07/28/23 15:40) Medications Given in ED Current Medications Medications Dose Ordered Sig/Ellen Route Start Time Stop Time Status Last Admin Dose Admin Ondansetron HCl 4 mg ONCE ONCE IVP 07/28/23 15:45 07/28/23 15:46 DC 07/28/23 15:49 4 MG Promethazine HCl 12.5 mg ONCE ONCE IVP 07/28/23 15:45 07/28/23 15:46 DC 07/28/23 15:49 12.5 MG Vital Signs/I&O 07/28/23 15:30 Temp 37.0 Pulse 88 Resp 18 B/P (MAP) 167/84 (111) Pulse Ox 100 Blood Pressure Mean: 111 Progress Progress Note : Progress Note 72-year-old female with above history coming in due to vomiting and nonbloody diarrhea. ABCs were intact and vitals were stable on presentation. Physical exam reassuring including a soft and nontender abdomen. An IV was placed and basic labs were obtained and were significant for a slightly elevated white blood cell count, slightly elevated lipase, not consistent with pancreatitis, normal kidney function, hemoglobin that does not require transfusion, normal creatinine. She received IV fluids and IV nausea medications. Vomiting stopped, tolerating p.o. here, and repeat abdominal exam reassuring. She is not on antibiotics, no fever, and with the soft/nontender abdomen this clinically is not consistent with C.diff. I believe she is stable for discharge with outpatient follow-up. She has Zofran at home, will send in a prescription for Phenergan as well. She should follow-up with her oncologist in a couple of days. Departure Impression Primary Impression: Chemotherapy induced nausea and vomiting Additional Impression: Chemotherapy-induced diarrhea Disposition: HOME, SELF-CARE Condition: Stable Departure-Patient Inst. Decision time for Depature: 16:50 Referrals: CAREY CANTU MD (PCP/Family) Primary Care Physician Patient Instructions: Nausea and Vomiting, Adult ED Add. Discharge Instructions: Your symptoms are likely related to your chemotherapy and likely will improve. Take the Zofran at home as needed for the nausea. Take the Phenergan that was sent to your pharmacy today as a second line for nausea if the Zofran is not helping. Take frequent but small sips of fluids in the meantime as well. Follow-up with your regular doctor Sunday if you are not seeing improvement. Scripts Promethazine HCl (Promethazine Tablet) 25 Mg Tablet 25 MG PO Q6H PRN for NAUSEA/VOMITING for 5 Days, #20 TAB Prov: RANGEL AWAD MD 07/28/23 RANGEL AWAD MD Jul 28, 2023 15:44
[2023-07-28] MEDS ORDERED: ONDANSETRON INJECTION 4 MG/2 ML (SDV) IVP ONE (15:45)
[2023-07-28] MEDS ORDERED: PROMETHAZINE INJ 25 MG/ML VIAL IVP ONE (15:45)
[2023-07-28 15:54] LABS: BASOPHILS % (AUTO) 0 % (0-10); EOSINOPHILS # (AUTO) 0.1 10^3/uL (0.0-0.3); EOSINOPHILS % (AUTO) 1 % (0-10); HEMATOCRIT 35 % (35-52); HEMOGLOBIN 11.6 g/dL (11.5-16.0); LYMPHOCYTES # (AUTO) 1.8 10^3/uL (1.0-4.0); LYMPHOCYTES % (AUTO) 12 % (12-44); MEAN CORPUSCULAR HEMOGLOBIN 30 pg (25-34); MEAN CORPUSCULAR HGB CONC 33 g/dL (32-36); MEAN CORPUSCULAR VOLUME 92 fL (80-99); MEAN PLATELET VOLUME 9.3 fL (9.0-12.2); MONOCYTES # (AUTO) 0.2 10^3/uL (0.0-1.0); MONOCYTES % (AUTO) 2 % (0-12); NEUTROPHILS # (AUTO) 12.7 10^3/uL (1.8-7.8); NEUTROPHILS % (AUTO) 85 % (42-75); PLATELET COUNT 330 10^3/uL (130-400)
[2023-07-28 16:02] LABS: ALBUMIN 3.6 GM/DL (3.2-4.5)
[2023-07-28 16:03] LABS: CALCIUM 8.8 MG/DL (8.5-10.1)
[2023-07-28 16:05] LABS: TOTAL PROTEIN 6.3 GM/DL (6.4-8.2)
[2023-07-28 16:07] LABS: BILIRUBIN,TOTAL 0.6 MG/DL (0.1-1.0)
[2023-07-28 16:08] LABS: CREATININE SERUM 0.83 MG/DL (0.60-1.30)
[2023-07-28 16:20] LABS: PROTHROMBIN TIME PATIENT 13.8 SEC (12.2-14.7)
[2023-07-28] MEDS ORDERED: PROM25TA14 PO (16:31)
[2023-07-28 16:43] LABS: BAND NEUTROPHILS 10 %; HYPOCHROMASIA SLIGHT; LYMPHOCYTES % (MANUAL) 18 %; NEUTROPHILS % (MANUAL) 72 %; PLATELET ESTIMATE ADEQUATE
[2023-07-28 16:58] VITALS: BP 150/63
== END 2023-07-28 16:57 | disposition home or self-care (01) ==
LOC: EDUNIT# 15:20 → ER 15:24
DX: R11.2 Nausea with vomiting, unspecified (principal); K52.1 Toxic gastroenteritis and colitis; T45.1X5A Adverse effect of antineoplastic and immunosuppressive drugs, initial encounter; C18.9 Malignant neoplasm of colon, unspecified; F17.210 Nicotine dependence, cigarettes, uncomplicated; Z28.310 Unvaccinated for COVID-19
CPT/HCPCS: 36415; 80053; 83690; 85007; 85027; 85610; 85730

== ENCOUNTER 2023-07-30 10:58 | Outpatient (RCR) | payer MEDICARE ==
[2023-07-19 11:07] LABS: BASOPHILS % (AUTO) 0 % (0-10); EOSINOPHILS # (AUTO) 0.2 10^3/uL (0.0-0.3); EOSINOPHILS % (AUTO) 2 % (0-10); HEMATOCRIT 36 % (35-52); HEMOGLOBIN 11.3 g/dL (11.5-16.0); LYMPHOCYTES # (AUTO) 1.8 10^3/uL (1.0-4.0); LYMPHOCYTES % (AUTO) 19 % (12-44); MEAN CORPUSCULAR HEMOGLOBIN 31 pg (25-34); MEAN CORPUSCULAR HGB CONC 32 g/dL (32-36); MEAN CORPUSCULAR VOLUME 96 fL (80-99); MEAN PLATELET VOLUME 9.2 fL (9.0-12.2); MONOCYTES # (AUTO) 1.1 10^3/uL (0.0-1.0); MONOCYTES % (AUTO) 12 % (0-12); NEUTROPHILS % (AUTO) 66 % (42-75); PLATELET COUNT 405 10^3/uL (130-400); WHITE BLOOD COUNT 9.2 10^3/uL (4.3-11.0)
[2023-07-19 11:29] LABS: ALBUMIN 3.9 GM/DL (3.2-4.5); BILIRUBIN,TOTAL 0.3 MG/DL (0.1-1.0); CALCIUM 10.1 MG/DL (8.5-10.1); CREATININE SERUM 0.98 MG/DL (0.60-1.30); TOTAL PROTEIN 7.1 GM/DL (6.4-8.2)
[2023-07-25 09:32] LABS: BASOPHILS # (AUTO) 0.1 10^3/uL (0.0-0.1); BASOPHILS % (AUTO) 1 % (0-10); EOSINOPHILS # (AUTO) 0.3 10^3/uL (0.0-0.3); EOSINOPHILS % (AUTO) 3 % (0-10); HEMATOCRIT 34 % (35-52); HEMOGLOBIN 10.9 g/dL (11.5-16.0); LYMPHOCYTES # (AUTO) 2.4 10^3/uL (1.0-4.0); LYMPHOCYTES % (AUTO) 28 % (12-44); MEAN CORPUSCULAR HEMOGLOBIN 30 pg (25-34); MEAN CORPUSCULAR HGB CONC 32 g/dL (32-36); MEAN CORPUSCULAR VOLUME 95 fL (80-99); MEAN PLATELET VOLUME 9.2 fL (9.0-12.2); MONOCYTES # (AUTO) 1.1 10^3/uL (0.0-1.0); MONOCYTES % (AUTO) 13 % (0-12); NEUTROPHILS # (AUTO) 4.7 10^3/uL (1.8-7.8); NEUTROPHILS % (AUTO) 55 % (42-75); PLATELET COUNT 355 10^3/uL (130-400); WHITE BLOOD COUNT 8.6 10^3/uL (4.3-11.0)
[2023-07-25 10:00] LABS: ALBUMIN 3.6 GM/DL (3.2-4.5); BILIRUBIN,TOTAL 0.3 MG/DL (0.1-1.0); CALCIUM 8.7 MG/DL (8.5-10.1); CREATININE SERUM 0.77 MG/DL (0.60-1.30); POTASSIUM 3.5 MMOL/L (3.6-5.0); TOTAL PROTEIN 6.3 GM/DL (6.4-8.2)
[2023-07-25 10:47] VITALS: BP 139/71
[~2023-07-30 10:58] MED LIST changes: +ATROPINE INJECTION 0.4 MG/ML SDV IV SCH; +BEVACIZUMAB BVZR IV SCH; +D5W IV SCH; +DEXAMETHASONE SODIUM PHOSPHATE IV SCH; +FAMOTIDINE INJ 20MG/2ML VIAL IV PRN; +FLUOROURACIL IV SCH; +FOSAPREPITANT (CANCER CENTER) 150 MG in NS (IVPB) CANCER CENTER ONLY 150 ML IV SCH; +HEParin (CENTRAL IV FLUSH) 500 UNIT/5 ML SYR IV PRN; +IRINOTECAN HCL IV SCH; +NS IV 1000 ML (CANCER CTR) IV SCH; +NS IV SCH; +PALONOSETRON HCL IV SCH; +PROM25TA14 PO; +diphenhydrAMINE 25 MG TABLET PO SCH
[2023-07-31] MEDS ORDERED: MORP-69 PO (10:56)
[2023-07-31] MEDS ORDERED: PANT40TA52 PO (10:56)
[2023-07-31] MEDS ORDERED: FERR-84 PO (10:56)
[2023-07-31] MEDS ORDERED: PROM25TA14 PO (10:56)
[2023-07-31] MEDS ORDERED: DIPH1TAB25 PO (10:56)
[2023-07-31] MEDS ORDERED: OXYC-191 PO (10:56)
[2023-07-31] MEDS ORDERED: ONDA-106 PO (10:56)
[2023-07-31] MEDS ORDERED: GABA300C PO (10:56)
[2023-08-02] MEDS ORDERED: VANC125C5 PO (12:36)
== END 2023-08-14 | disposition home or self-care (01) ==
LOC: ONC 10:58
PROVIDERS: ATTEND Internal Medicine Hematology & Oncology
DX: Z51.11 Encounter for antineoplastic chemotherapy (principal); C18.2 Malignant neoplasm of ascending colon; C77.2 Secondary and unspecified malignant neoplasm of intra-abdominal lymph nodes; D50.8 Other iron deficiency anemias; I25.10 Atherosclerotic heart disease of native coronary artery without angina pectoris; F41.1 Generalized anxiety disorder
CPT/HCPCS: 80053; 82378; 85025; G0463; 36415; 36591; 96367; 96375; 96413; 96417; 99214

== ENCOUNTER 2023-07-30 11:14 | Inpatient (IN) | payer MEDICARE ==
[~2023-07-30] VITALS: Ht 157.4 cm; Wt 49.8 kg
[~2023-07-30 11:14] MED LIST changes: -ATROPINE INJECTION 0.4 MG/ML SDV IV SCH; -BEVACIZUMAB BVZR IV SCH; -D5W IV SCH; -DEXAMETHASONE SODIUM PHOSPHATE IV SCH; -FAMOTIDINE INJ 20MG/2ML VIAL IV PRN; -FLUOROURACIL IV SCH; -FOSAPREPITANT (CANCER CENTER) 150 MG in NS (IVPB) CANCER CENTER ONLY 150 ML IV SCH; -HEParin (CENTRAL IV FLUSH) 500 UNIT/5 ML SYR IV PRN; -IRINOTECAN HCL IV SCH; -NS IV 1000 ML (CANCER CTR) IV SCH; -NS IV SCH; -PALONOSETRON HCL IV SCH; -diphenhydrAMINE 25 MG TABLET PO SCH
[2023-07-30 11:44] LABS: BASOPHILS % (AUTO) 0 % (0-10); EOSINOPHILS # (AUTO) 0.1 10^3/uL (0.0-0.3); EOSINOPHILS % (AUTO) 1 % (0-10); HEMATOCRIT 35 % (35-52); HEMOGLOBIN 11.2 g/dL (11.5-16.0); LYMPHOCYTES # (AUTO) 1.3 10^3/uL (1.0-4.0); LYMPHOCYTES % (AUTO) 19 % (12-44); MEAN CORPUSCULAR HEMOGLOBIN 30 pg (25-34); MEAN CORPUSCULAR HGB CONC 33 g/dL (32-36); MEAN CORPUSCULAR VOLUME 91 fL (80-99); MEAN PLATELET VOLUME 9.4 fL (9.0-12.2); MONOCYTES # (AUTO) 0.2 10^3/uL (0.0-1.0); MONOCYTES % (AUTO) 3 % (0-12); NEUTROPHILS # (AUTO) 5.4 10^3/uL (1.8-7.8); NEUTROPHILS % (AUTO) 77 % (42-75); PLATELET COUNT 280 10^3/uL (130-400)
[2023-07-30] MEDS ORDERED: SCOPOLAMINE 1.5 MG PATCH TD ONE (11:45)
[2023-07-30] MEDS ORDERED: ONDANSETRON INJECTION 4 MG/2 ML (SDV) IVP ONE (11:45)
[2023-07-30] MEDS ORDERED: LACTATED RINGERS 1,000 ML 1,000 ML IV ONE (11:45)
[2023-07-30 11:50] LABS: ALBUMIN 3.7 GM/DL (3.2-4.5); POTASSIUM 3.4 MMOL/L (3.6-5.0)
[2023-07-30 11:52] LABS: CALCIUM 9.1 MG/DL (8.5-10.1)
[2023-07-30 11:53] LABS: TOTAL PROTEIN 6.4 GM/DL (6.4-8.2)
[2023-07-30 11:54] LABS: BILIRUBIN,TOTAL 0.6 MG/DL (0.1-1.0)
[2023-07-30 11:57] LABS: CREATININE SERUM 0.81 MG/DL (0.60-1.30)
[2023-07-30 11:59] LABS: MAGNESIUM 1.9 MG/DL (1.6-2.4)
--- NOTE | 2023-07-30 11:59 | ED General ---
General Chief Complaint: Abdominal/GI Problems Stated Complaint: VOMITING | CANCER PT Nursing Triage Note: PT TO RM 7 BY RICHARD FROM [facility] WITH C/O V/D SINCE LAST SUNDAY Source of Information: Patient, Family, Old Records Exam Limitations: No Limitations History of Present Illness Date Seen by Provider: Jul 30, 2023 Time Seen by Provider: 11:24 Initial Comments This is 72-year-old woman presents to the emergency room with complaints of nausea, vomiting, and diarrhea for the past 5 days after receiving chemotherapy for colon cancer. She has had colon resection for treatment of the cancer but reports metastatic disease and at least 1 lymph node for which she is now receiving chemotherapy under the direction of Dr. Mcduffie. She was at the [facility] this morning and was referred to the emergency room as she was actively vomiting. She had taken Phenergan this morning without much improvement. She reports Phenergan and Zofran have minimal effect. She denies any significant pain but has some minor tenderness to the lower abdomen on palpation. She denies any fever or chills, cough, shortness of breath, or other symptoms of acute infectious illness. She was seen in this ER 2 days ago and treated with antiemetics and hydration. At that time she had a WBC of 15 and mild elevation in lipase of 91. Patient also notes she had a hernia repair about a month ago. Allergies and Home Medications Allergies Coded Allergies: leucovorin (Verified Allergy, Intermediate, 06/19/23) maybe oxaliplatin or leucovorin causing rash oxaliplatin (Verified Allergy, Unknown, 06/15/23) elevated blood pressure Patient Home Medication List Home Medication List Reviewed: Yes ALPRAZolam (ALPRAZolam) 0.25 Mg Tablet, 0.25 MG PO BID PRN for ANXIETY, (Reported) Entered as Reported by: JES CORTEZ on 08/12/21 1044 Acyclovir (Acyclovir) 5 % Cream..g., 5 GM TP, (Reported) Entered as Reported by: Mikala Dolan on 06/15/23 1405 Alprazolam (Alprazolam) 1 Mg Tablet, 1 MG PO, (Reported) Entered as Reported by: Mikala Dolan on 06/15/23 1405 Amlodipine Besylate (Amlodipine Besylate) 5 Mg Tablet, 5 MG PO DAILY, (Reported) Entered as Reported by: JOELLE WILLIAM on 06/24/21 1059 Amlodipine Besylate (Amlodipine Besylate) 2.5 Mg Tablet, 2.5 MG PO DAILY, (Reported) Entered as Reported by: Mikala Dolan on 06/15/23 140 Cetirizine HCl (Zyrtec) 10 Mg Capsule, 10 MG PO, (Reported) Entered as Reported by: Mikala Dolan on 06/15/23 140 Docusate Sodium (Colace) 100 Mg Capsule, 100 MG PO DAILY PRN for CONSTIPATION- 1ST LINE, (Reported) Entered as Reported by: JES CORTEZ on 08/12/21 104 Glimepiride (Glimepiride) 2 Mg Tablet, 2 MG PO BID, (Reported) Entered as Reported by: JES CORTEZ on 08/12/21 104 Glimepiride (Glimepiride) 2 Mg Tablet, 2 MG PO, (Reported) Entered as Reported by: Mikala Dolan on 06/15/23 140 Lisinopril (Lisinopril) 20 Mg Tablet, 20 MG PO BID, (Reported) Entered as Reported by: JES CORTEZ on 08/12/21 104 Lisinopril (Lisinopril) 20 Mg Tablet, 20 MG PO DAILY, (Reported) Entered as Reported by: Mikala Dolan on 06/15/23 140 Metformin HCl (Metformin HCl) 1,000 Mg Tablet, 1,000 MG PO BID, (Reported) Entered as Reported by: JES CORTEZ on 08/12/21 1044 Metformin HCl (Metformin HCl) 1,000 Mg Tablet, 1,000 MG PO, (Reported) Entered as Reported by: Mikala Dolan on 06/15/23 140 Morphine Sulfate/0.9% NaCl/Pf (Morphine 30 mg/30 ml-NaCl Syrg) 30 Mg/30 Ml (1 Mg/Ml) Fundraising Sale Representative.syring, 30 MG IV, (Reported) Entered as Reported by: Mikala Dolan on 06/15/23 140 Ondansetron (Ondansetron Odt) 8 Mg Tab.rapdis, 8 MG SL Q4H PRN for NAUSEA/VOMITING, (Reported) Entered as Reported by: Mikala Dolan on 06/15/23 140 Oxycodone HCl/Acetaminophen (Oxycodone-Acetaminophen 10-325) 10 Mg-325 Mg Tablet, 1 EACH PO Q6H PRN for PAIN-MODERATE Prescribed by: JOANN HANEY on 06/21/23 1334 Pantoprazole Sodium (Protonix) 40 Mg Tablet.dr, 40 MG PO DAILY, (Reported) Entered as Reported by: JULIO HAMILTON on 06/05/22 0811 Pravastatin Sodium (Pravastatin Sodium) 20 Mg Tablet, 20 MG PO DAILY, (Reported) Entered as Reported by: JOELLE WILLIAM on 06/24/21 1059 Pravastatin Sodium (Pravastatin Sodium) 20 Mg Tablet, 20 MG PO, (Reported) Entered as Reported by: Mikala Dolan on 06/15/23 1405 Promethazine HCl (Promethazine Tablet) 25 Mg Tablet, 25 MG PO Q6H PRN for NAUSEA/VOMITING Prescribed by: RANGEL AWAD on 07/28/23 1631 Review of Systems Review of Systems Constitutional: no symptoms reported EENTM: no symptoms reported Respiratory: no symptoms reported Cardiovascular: no symptoms reported Gastrointestinal: see HPI Genitourinary: no symptoms reported : No Musculoskeletal: no symptoms reported Skin: no symptoms reported Psychiatric/Neurological: No Symptoms Reported Hematologic/Lymphatic: No Symptoms Reported Immunological/Allergic: no symptoms reported Past Zhgokxa-Aqbzwn-Bfrvxh Hx Patient Social History Tobacco Use?: Yes Tobacco type used: Cigarettes Substance use?: No Alcohol Use?: No Pt feels they are or have been: No Immunizations Up To Date First/Initial COVID19 Vaccinat: no Second COVID19 Vaccination Osmel: no Third COVID19 Vaccination Date: no Seasonal Allergies Seasonal Allergies: No Past Medical History Surgery/Hospitalization HX: RAVI; APPY; HYSTERECTOMY; COLON RESECTION; HERNIA REPAIR WITH MESH; KIDNEY STENT PLACEMENT COLON CANCER Surgeries: Yes Abdominal (Partial colon resection, hernia repair), Appendectomy, Gallbladder, Hysterectomy, Renal (Ureteral stent) Respiratory: No Currently Using CPAP: No Currently Using BIPAP: No Cardiac: Yes High Cholesterol, Hypertension Neurological: Yes (LEFT SIDED WEAKNESS) 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 Genitourinary: Yes (RIGHT URETHRA KIDNEY STENT) Kidney Stones Gastrointestinal: Yes (SIDE EFFECT OF CHEMO) Gastroesophageal Reflux Musculoskeletal: No Endocrine: Yes Diabetes, Non-Insulin dep HEENT: No Loss of Vision: Bilateral Hearing Impairment: Denies Cancer: Yes Colon Did You Recieve Any Treatments: Yes What Type of Treatment Did You: Chemotherapy, Surgical Intervention (Partial bowel resection) Psychosocial: Yes Anxiety Integumentary: Yes (ROSACEA) Psoriasis Blood Disorders: No Adverse Reaction/Blood Tranf: No Physical Exam Vital Signs Vital Signs - First Documented 07/30/23 11:18 Temp 37.1 Pulse 93 Resp 20 B/P (MAP) 146/86 (106) Pulse Ox 100 O2 Delivery Room Air Capillary Refill : Height, Weight, BMI Height: '" Weight: lbs. oz. kg; 21.87 BMI Method: General Appearance: WD/WN, Thin HEENT: PERRL/EOMI, Normal ENT Inspection Neck: Normal Inspection Respiratory: Lungs Clear, Normal Breath Sounds, No Accessory Muscle Use Cardiovascular: Regular Rate, Rhythm, No Edema, No Murmur Gastrointestinal: Soft; No Distended; Tenderness (Mild in the lower abdomen) Extremity: Normal Inspection, No Pedal Edema Neurologic/Psychiatric: Alert, Oriented x3, No Motor/Sensory Deficits, Normal Mood/Affect Skin: Normal Color, Warm/Dry Progress/Results/Core Measures Suspected Sepsis SIRS Temperature: Pulse: 93 Respiratory Rate: 20 Laboratory Tests 07/30/23 11:27: White Blood Count 7.0 Blood Pressure 146 /86 Mean: 106 Laboratory Tests 07/30/23 11:27: Creatinine 0.81, Platelet Count 280, Total Bilirubin 0.6 Results/Orders Lab Results Laboratory Tests Test 07/30/23 11:27 07/30/23 12:38 Range/Units White Blood Count 7.0 4.3-11.0 10^3/uL Red Blood Count 3.78 L 3.80-5.11 10^6/uL Hemoglobin 11.2 L 11.5-16.0 g/dL Hematocrit 35 35-52 % Mean Corpuscular Volume 91 80-99 fL Mean Corpuscular Hemoglobin 30 25-34 pg Mean Corpuscular Hemoglobin Concent 33 32-36 g/dL Red Cell Distribution Width 15.7 H 10.0-14.5 % Platelet Count 280 130-400 10^3/uL Mean Platelet Volume 9.4 9.0-12.2 fL Immature Granulocyte % (Auto) 0 % Neutrophils (%) (Auto) 77 H 42-75 % Lymphocytes (%) (Auto) 19 12-44 % Monocytes (%) (Auto) 3 0-12 % Eosinophils (%) (Auto) 1 0-10 % Basophils (%) (Auto) 0 0-10 % Neutrophils # (Auto) 5.4 1.8-7.8 10^3/uL Lymphocytes # (Auto) 1.3 1.0-4.0 10^3/uL Monocytes # (Auto) 0.2 0.0-1.0 10^3/uL Eosinophils # (Auto) 0.1 0.0-0.3 10^3/uL Basophils # (Auto) 0.0 0.0-0.1 10^3/uL Immature Granulocyte # (Auto) 0.0 0.0-0.1 10^3/uL Sodium Level 135 135-145 MMOL/L Potassium Level 3.4 L 3.6-5.0 MMOL/L Chloride Level 101 98-107 MMOL/L Carbon Dioxide Level 22 21-32 MMOL/L Anion Gap 12 5-14 MMOL/L Blood Urea Nitrogen 10 7-18 MG/DL Creatinine 0.81 0.60-1.30 MG/DL Estimat Glomerular Filtration Rate 77 BUN/Creatinine Ratio 12 Glucose Level 184 H 70-105 MG/DL Calcium Level 9.1 8.5-10.1 MG/DL Corrected Calcium 9.3 8.5-10.1 MG/DL Magnesium Level 1.9 1.6-2.4 MG/DL Total Bilirubin 0.6 0.1-1.0 MG/DL Aspartate Amino Transf (AST/SGOT) 10 5-34 U/L Alanine Aminotransferase (ALT/SGPT) 8 0-55 U/L Alkaline Phosphatase 57 40-136 U/L C-Reactive Protein High Sensitivity 6.50 H 0.00-0.50 MG/DL Total Protein 6.4 6.4-8.2 GM/DL Albumin 3.7 3.2-4.5 GM/DL Lipase 36 8-78 U/L Urine Color YELLOW Urine Clarity CLEAR Urine pH 7.0 5-9 Urine Specific [place] 1.015 L 1.016-1.022 Urine Protein 2+ H NEGATIVE Urine Glucose (UA) NEGATIVE NEGATIVE Urine Ketones 1+ H NEGATIVE Urine Nitrite NEGATIVE NEGATIVE Urine Bilirubin NEGATIVE NEGATIVE Urine Urobilinogen 0.2 < = 1.0 MG/DL Urine Leukocyte Esterase NEGATIVE NEGATIVE Urine RBC (Auto) NEGATIVE NEGATIVE Urine RBC NONE /HPF Urine WBC NONE /HPF Urine Squamous Epithelial Cells 0-2 /HPF Urine Crystals NONE /LPF Urine Bacteria NEGATIVE /HPF Urine Casts NONE /LPF Urine Mucus SMALL H /LPF Urine Culture Indicated NO My Orders Orders - ABHIJIT CAIN MD Cbc And Automated Diff (07/30/23 11:34) Comprehensive Metabolic Panel (07/30/23 11:34) Hs C Reactive Protein (07/30/23 11:34) Lipase (07/30/23 11:34) Magnesium (07/30/23 11:34) Ua Culture If Indicated (07/30/23 11:34) Ed Iv/Invasive Line Start (07/30/23 11:34) Lactated Ringers 1,000 Ml (Lactated Ring (07/30/23 11:45) Ondansetron Injection (Ondansetron Inj (07/30/23 11:45) Scopolamine Patch (Scopolamine Patch) (07/30/23 11:45) Diphenhydramine Injection (Diphenhydram (07/30/23 13:30) Pantoprazole Injection (Pantoprazole Inj (07/30/23 13:30) Ct Abdomen/Pelvis W (07/30/23 13:21) Iohexol Injection (Omnipaque 350 Mg/Ml 1 (07/30/23 13:45) Received Contrast (Hold Metformin- Contr (07/30/23 13:45) Ns (Ivpb) 100 Ml (Sodium Chloride 0.9% 1 (07/30/23 13:45) Piperacillin/Tazobactam (Piperacillin/Ta (07/30/23 15:00) Stool Culture (07/30/23 14:52) Fecal Wbc (07/30/23 14:52) C Difficile Ag + Toxin A/B. (07/30/23 14:52) Ed Admission (Communication) (07/30/23 15:16) Medications Given in ED Current Medications Medications Dose Ordered Sig/Ellen Route Start Time Stop Time Status Last Admin Dose Admin Diphenhydramine HCl 25 mg ONCE ONCE IVP 07/30/23 13:30 07/30/23 13:31 DC 07/30/23 14:10 25 MG Iohexol 100 ml ONCE ONCE IV 07/30/23 13:45 07/30/23 13:46 DC 07/30/23 13:43 60 ML Lactated Ringer's 1,000 ml @ 0 mls/hr Q0M ONCE IV 07/30/23 11:45 07/30/23 11:46 DC 07/30/23 11:46 1,000 MLS/HR Ondansetron HCl 8 mg ONCE ONCE IVP 07/30/23 11:45 07/30/23 11:46 DC 07/30/23 11:46 8 MG Pantoprazole 40 mg ONCE ONCE IV 07/30/23 13:30 07/30/23 13:31 DC 07/30/23 14:10 40 MG Piperacillin Sod/ Tazobactam Sod 4.5 gm/Sodium Chloride 100 ml @ 200 mls/hr ONCE ONCE IV 07/30/23 15:00 07/30/23 15:29 DC 07/30/23 15:18 200 MLS/HR Scopolamine 1.5 mg ONCE ONCE TD 07/30/23 11:45 07/30/23 11:46 DC 07/30/23 11:46 1.5 MG Sodium Chloride 100 ml ONCE ONCE IV 07/30/23 13:45 07/30/23 13:46 DC 07/30/23 13:44 80 ML Vital Signs/I&O 07/30/23 07/30/23 11:18 15:28 Temp 37.1 36.8 Pulse 93 77 Resp 20 18 B/P (MAP) 146/86 (106) 149/78 Pulse Ox 100 99 O2 Delivery Room Air Room Air Capillary Refill : Blood Pressure Mean: 106 Progress Note : Progress Note Patient was treated with Zofran and hydrated with a liter of LR. Scopolamine patch was added to her antiemetics. She was still experiencing nausea and was further treated with Benadryl and Protonix. Labs were obtained, reviewed, and interpreted by me. CBC was remarkable only for mild anemia with hemoglobin of 11.2. CMP was notable for slight hypokalemia with potassium of 3.4. Glucose was elevated at 184. CMP was otherwise unremarkable. CRP was mildly elevated at 6.5. Lipase had returned to normal at 36 when compared with prior lipase of 91. Urinalysis was notable for 2+ protein and 1+ ketones. CT scan was offered for further evaluation. CT was obtained and radiologist's report reviewed as below. Colitis was noted. We discussed the situation and whether antibiotics should be administered by IV route. Consensus after discussion amongst myself, Dr. Roa (admitting hospitalist), patient, and family was that we will at least start antibiotic therapy with a dose in the ER. If C. difficile returns positive, we will cease IV antibiotic therapy and start oral vancomycin. Patient was agreeable to this plan. First dose of Zosyn was administered in the ER. I discussed CODE STATUS with the patient, and she elects full CODE STATUS. Dr. Roa graciously presented to the emergency room to visit with the patient and examine her personally. Diagnostic Imaging Diagonstic Imaging: CT Plain Films/CT/US/NM/MRI: abdomen, pelvis Comments NAME: CECI STAPLES [facility] REC#: [id number] PT STATUS: REG ER : 1950 PHYSICIAN: ABHIJIT CAIN MD ADMIT DATE: 07/30/23/ER Draft Date of Exam:07/30/23 CT ABDOMEN/PELVIS W CT ABDOMEN/PELVIS W TECHNIQUE: Multiple contiguous axial images were obtained through the abdomen and pelvis after administration of intravenous contrast. All CT scans use one or more of the following dose optimizing techniques: Automated exposure control, MA and/or KvP adjustment based on patient size and exam type or iterative reconstruction. INDICATION: Abdominal pain with colon cancer. COMPARISON: CT abdomen and pelvis from 04/30/2023. FINDINGS: Lower chest: The lung bases are clear. No pericardial or pleural effusion. Peritoneum: No free intraperitoneal air or fluid. Liver and biliary system: The liver is normal. Cholecystectomy. Unchanged mild dilation of the common bile duct due to reservoir effect. Spleen and Pancreas: Spleen is normal. The pancreas enhances normally without mass lesion or peripancreatic inflammatory changes. Adrenals: Normal. tract: The kidneys enhance symmetrically. Very minimal right perinephric stranding is present. Right nephroureteral stent has both proximal and distal portions well positioned. There are no stones along the course of the stent. No left-sided ureteral stent. No concerning renal mass or bladder wall thickening. Hysterectomy. No adnexal mass. GI tract: Stomach is partially filled with fluid. Air- and fluid-filled periampullary diverticulum of the second portion of the duodenum is stable in appearance. No bowel obstruction. Postoperative changes of right hemicolectomy with an enterocolonic anastomosis in the right upper quadrant are stable. Mild circumferential wall thickening throughout the remainder of the colon is new since prior examination. Vasculature and Lymph nodes: Normal-caliber aorta has severe atherosclerotic plaquing and remains patent with no aortic dissection. The celiac and superior mesenteric arteries remain widely patent. The inferior mesenteric artery is densely calcified at its origin, and therefore patency is suboptimally assessed. This appearance of the ALDO is stable since the prior exam. No abdominal or pelvic lymphadenopathy. Musculoskeletal: No concerning osseous lesion. Since prior examination, ventral hernia repair has likely been performed, and there is a 10 x 2 x 9 cm collection within the deep aspect of the rectus sheath/intraperitoneal cavity. IMPRESSION: 1. Diffuse wall thickening throughout the residual colon has developed since prior examination and is suspicious for acute colitis. This is most likely infectious in etiology given the entire colon is involved. 2. No bowel obstruction, abscess, or perforation. 3. Ventral hernia repair with a thin fluid collection along the deep surface of the anterior abdominal wall. This is most likely postoperative seroma, but if there is concern for infection, then this would be amenable to CT-guided aspiration. Dictated on workstation # [id number] Dict: 07/30/23 1349 Trans: 07/30/23 1402 [id number] Interpreted by: ATIYA BERGER MD Departure Communication (Admissions) Time/Spoke to Admitting Phy: 14:48 Dr. Roa Impression Primary Impression: Nausea vomiting and diarrhea Additional Impressions: Immunocompromised Colon cancer Qualified Codes: C18.9 - Malignant neoplasm of colon, unspecified Colitis Disposition: 01 HOME, SELF-CARE Condition: Improved Admissions Decision to Admit Reason: Admit from ER (General) Decision to Admit/Date: Jul 30, 2023 Time/Decision to Admit Time: 14:48 Departure-Patient Inst. Referrals: CAREY CANTU MD (PCP/Family) Primary Care Physician Copy Copies To 1: NESTOR MCDUFFIE MD Copies To 2: CAREY CANTU MD, JOSHUA T MD Jul 30, 2023 11:59
[2023-07-30 13:04] LABS: CLARITY,URINE CLEAR; COLOR,URINE YELLOW; GLUCOSE, URINE (UA) NEGATIVE (NEGATIVE); PROTEIN,URINE 2+ (NEGATIVE)
[2023-07-30 13:05] LABS: BACTERIA,URINE NEGATIVE /HPF; BILIRUBIN,URINE NEGATIVE (NEGATIVE); KETONES,URINE 1+ (NEGATIVE); LEUKOCYTE ESTERASE ,URINE NEGATIVE (NEGATIVE); NITRITE,URINE NEGATIVE (NEGATIVE); SQUAMOUS EPITHELIAL CELL,UR 0-2 /HPF
[2023-07-30] MEDS ORDERED: diphenhydrAMINE INJ 50 MG/ML VIAL IVP ONE (13:30)
[2023-07-30] MEDS ORDERED: PANTOPRAZOLE INJECTION 40 MG VIAL IV ONE (13:30)
[2023-07-30] MEDS ORDERED: NS 100 ML (IVPB) BAG IV ONE (13:45)
[2023-07-30] MEDS ORDERED: HOLD METFORMIN - RECEIVED CONTRAST 20 ML VIAL IV SCH (13:45)
[2023-07-30] MEDS ORDERED: IOHEXOL 350 MG/ML 100 ML (OMNIPAQUE 350) VIAL IV ONE (13:45)
--- NOTE | 2023-07-30 14:02 | Diagnostic Imaging Report ---
CT ABDOMEN/PELVIS W TECHNIQUE: Multiple contiguous axial images were obtained through the abdomen and pelvis after administration of intravenous contrast. All CT scans use one or more of the following dose optimizing techniques: Automated exposure control, MA and/or KvP adjustment based on patient size and exam type or iterative reconstruction. INDICATION: Abdominal pain with colon cancer. COMPARISON: CT abdomen and pelvis from 04/30/2023. FINDINGS: Lower chest: The lung bases are clear. No pericardial or pleural effusion. Peritoneum: No free intraperitoneal air or fluid. Liver and biliary system: The liver is normal. Cholecystectomy. Unchanged mild dilation of the common bile duct due to reservoir effect. Spleen and Pancreas: Spleen is normal. The pancreas enhances normally without mass lesion or peripancreatic inflammatory changes. Adrenals: Normal. tract: The kidneys enhance symmetrically. Very minimal right perinephric stranding is present. Right nephroureteral stent has both proximal and distal portions well positioned. There are no stones along the course of the stent. No left-sided ureteral stent. No concerning renal mass or bladder wall thickening. Hysterectomy. No adnexal mass. GI tract: Stomach is partially filled with fluid. Air- and fluid-filled periampullary diverticulum of the second portion of the duodenum is stable in appearance. No bowel obstruction. Postoperative changes of right hemicolectomy with an enterocolonic anastomosis in the right upper quadrant are stable. Mild circumferential wall thickening throughout the remainder of the colon is new since prior examination. Vasculature and Lymph nodes: Normal-caliber aorta has severe atherosclerotic plaquing and remains patent with no aortic dissection. The celiac and superior mesenteric arteries remain widely patent. The inferior mesenteric artery is densely calcified at its origin, and therefore patency is suboptimally assessed. This appearance of the ALDO is stable since the prior exam. No abdominal or pelvic lymphadenopathy. Musculoskeletal: No concerning osseous lesion. Since prior examination, ventral hernia repair has likely been performed, and there is a 10 x 2 x 9 cm collection within the deep aspect of the rectus sheath/intraperitoneal cavity. IMPRESSION: 1. Diffuse wall thickening throughout the residual colon has developed since prior examination and is suspicious for acute colitis. This is most likely infectious in etiology given the entire colon is involved. 2. No bowel obstruction, abscess, or perforation. 3. Ventral hernia repair with a thin fluid collection along the deep surface of the anterior abdominal wall. This is most likely postoperative seroma, but if there is concern for infection, then this would be amenable to CT-guided aspiration. Dictated by: Dictated on workstation # [id number]
[2023-07-30] MEDS ORDERED: PIPERACILLIN/Tazobactam 4.5 GM in NS (IVPB) 100 ML 100 ML IV ONE (15:00)
[2023-07-30] MEDS ORDERED: ONDANSETRON 4 MG ORAL DISSOLVE TABLET PO PRN (15:45)
[2023-07-30] MEDS ORDERED: MILK OF MAGNESIA 400 MG/5 ML 30 ML UDC PO PRN (15:45)
[2023-07-30] MEDS ORDERED: LACTULOSE SYRUP 10GM/15ML 30ML UDC PO PRN (15:45)
[2023-07-30] MEDS ORDERED: ACETAMINOPHEN 325 MG TABLET PO PRN (15:45)
[2023-07-30] MEDS ORDERED: diphenhydrAMINE 25 MG TABLET PO PRN (15:45)
[2023-07-30] MEDS ORDERED: BISACODYL 10 MG SUPPOSITORY PR PRN (15:45)
[2023-07-30] MEDS ORDERED: ANTACID SUSPENSION 30 ML UDC PO PRN (15:45)
[2023-07-30] MEDS ORDERED: MELATONIN 3 MG TABLET PO PRN (15:45)
[2023-07-30] MEDS ORDERED: CALCIUM CARBONATE 500 MG CHEW TABLET PO PRN (15:45)
[2023-07-30 15:50] VITALS: BP 145/67
--- NOTE | 2023-07-30 16:13 | Consultation - Surgery ---
AYAD ENRIQUEZ 07/30/23 1613: History of Present Illness History of Present Illness Patient Consulted On(david/time) 07/30/23 16:05 Date Seen by Provider: Jul 30, 2023 Time Seen by Provider: 15:35 Reason for Visit: Nausea/Vomiting and Diahrrea History of Present Illness Yenifer Wallace is a 72 year old woman with complaints of diarrhea, nausea and vomiting. She has been having diarrhea for the last two weeks but Sunday last week after her chemotherapy session, her diarrhea increased in severity and she also developed nausea/vomiting. She has been doing chemotherapy for around a year but had to stop in may due to having shingles, a UTI and a hernia repair. Her first chemo treatment since stopping was last week on Sunday. She has never had symptoms this sever and normally when she gets GI symptoms after a chemo session, it goes away in a couple of days. She does mention the only thing she recently changed was she started drinking glycerna shakes in the last 2-3 weeks but denies starting any new medications. She also endorses a RLQ abdominal pain that has been present for around a year and is more of dull ache pain that comes and goes, and is exacerbated when she lays on her right side. Since being in the emergency department she also complains of a lower back pain. Allergies and Home Medications Allergies Coded Allergies: leucovorin (Verified Allergy, Intermediate, 06/19/23) maybe oxaliplatin or leucovorin causing rash oxaliplatin (Verified Allergy, Unknown, 06/15/23) elevated blood pressure Patient Home Medication List ALPRAZolam (ALPRAZolam) 0.25 Mg Tablet, 0.25 MG PO TID PRN for ANXIETY, (Reported) Entered as Reported by: JES CORTEZ on 08/12/21 1044 Last Action: Reviewed Amlodipine Besylate (Amlodipine Besylate) 5 Mg Tablet, 5 MG PO DAILY, (Reported) Entered as Reported by: JOELLE WILLIAM on 06/24/21 1059 Last Action: Reviewed Diphenoxylate HCl/Atropine (Diphenoxylate-Atrop 2.5-0.025) 2.5 Mg-0.025 Mg Tablet, 2 EA PO QID PRN for LOOSE STOOLS, (Reported) Entered as Reported by: CRISTEL ADLER on 07/31/23 1056 Last Action: Reviewed Ferrous Sulfate (Iron) 325 Mg (65 Mg Iron) Tablet, 325 MG PO DAILY, (Reported) Entered as Reported by: CRISTEL ADLER on 07/31/231055 Last Action: Reviewed Gabapentin (Neurontin) 300 Mg Capsule, 300 MG PO TID, (Reported) Entered as Reported by: CRISTEL ADLER on 07/31/231055 Last Action: Reviewed Glimepiride (Glimepiride) 2 Mg Tablet, 2 MG PO BID, (Reported) Entered as Reported by: JES CORTEZ on 08/12/211043 Last Action: Reviewed Lisinopril (Lisinopril) 20 Mg Tablet, 20 MG PO BID, (Reported) Entered as Reported by: JES CORTEZ on 08/12/211043 Last Action: Reviewed Metformin HCl (Metformin HCl) 1,000 Mg Tablet, 1,000 MG PO BID, (Reported) Entered as Reported by: JES CORTEZ on 08/12/211043 Last Action: Reviewed Morphine Sulfate (Morphine Sulfate ER) 30 Mg Tablet.er, 30 MG PO Q12H PRN for PAIN-SEVERE (8-10), (Reported) Entered as Reported by: CRISTEL ADELR on 07/31/231055 Last Action: Reviewed Ondansetron HCl (Ondansetron HCl) 8 Mg Tablet, 8 MG PO TID PRN for NAUSEA/VOMITING-1ST LINE, (Reported) Entered as Reported by: CRISTEL ADLER on 07/31/231055 Last Action: Reviewed Oxycodone HCl/Acetaminophen (Endocet 10-325 mg Tablet) 10 Mg-325 Mg Tablet, 1 EA PO Q6H PRN for PAIN-MODERATE (5-7), (Reported) Entered as Reported by: CRISTEL ADLER on 07/31/231055 Last Action: Reviewed Pantoprazole Sodium (Pantoprazole Sodium) 40 Mg Tablet.dr, 40 MG PO DAILY, (Reported) Entered as Reported by: CRISTEL ADLER on 07/31/231055 Last Action: Reviewed Pravastatin Sodium (Pravastatin Sodium) 20 Mg Tablet, 20 MG PO HS, (Reported) Entered as Reported by: JOELLE WILLIAM on 06/24/211058 Last Action: Reviewed Promethazine HCl (Promethazine Tablet) 25 Mg Tablet, 25 MG PO Q6H PRN for NAUSEA/VOMITING-1ST LINE, (Reported) Entered as Reported by: CRISTEL ADLER on 07/31/23 1056 Last Action: Reviewed Discontinued Medications Acyclovir (Acyclovir) 5 % Cream..g., 5 GM TP, (Reported) Discontinued Reason: Duplicate Order Entered as Reported by: Mikala Dolan on 06/15/231404 Last Action: Discontinued Alprazolam (Alprazolam) 1 Mg Tablet, 1 MG PO, (Reported) Discontinued Reason: Duplicate Order Entered as Reported by: Mikala Dolan on 06/15/231404 Last Action: Discontinued Amlodipine Besylate (Amlodipine Besylate) 2.5 Mg Tablet, 2.5 MG PO DAILY, (Reported) Discontinued Reason: Duplicate Order Entered as Reported by: Mikala Dolan on 06/15/231404 Last Action: Discontinued Cetirizine HCl (Zyrtec) 10 Mg Capsule, 10 MG PO, (Reported) Discontinued Reason: Duplicate Order Entered as Reported by: Mikala Dolan on 06/15/231404 Last Action: Discontinued Docusate Sodium (Colace) 100 Mg Capsule, 100 MG PO DAILY PRN for CONSTIPATION- 1ST LINE, (Reported) Discontinued Reason: Duplicate Order Entered as Reported by: JES CORTEZ on 08/12/21 1044 Last Action: Discontinued Glimepiride (Glimepiride) 2 Mg Tablet, 2 MG PO, (Reported) Discontinued Reason: No Longer Taking Entered as Reported by: Mikala Dolan on 06/15/231404 Last Action: Discontinued Lisinopril (Lisinopril) 20 Mg Tablet, 20 MG PO DAILY, (Reported) Discontinued Reason: No Longer Taking Entered as Reported by: Mikala Dolan on 06/15/231404 Last Action: Discontinued Metformin HCl (Metformin HCl) 1,000 Mg Tablet, 1,000 MG PO, (Reported) Discontinued Reason: Duplicate Order Entered as Reported by: Mikala Dolan on 06/15/231404 Last Action: Discontinued Morphine Sulfate/0.9% NaCl/Pf (Morphine 30 mg/30 ml-NaCl Syrg) 30 Mg/30 Ml (1 Mg/Ml) Hand Lens Polisher.syring, 30 MG IV, (Reported) Discontinued Reason: Duplicate Order Entered as Reported by: Mikala Dolan on 9/1/23 1405 Last Action: Discontinued Ondansetron (Ondansetron Odt) 8 Mg Tab.rapdis, 8 MG SL Q4H PRN for NAUSEA/VOMITING, (Reported) Discontinued Reason: Duplicate Order Entered as Reported by: Mikala Dolan on 06/15/23 1405 Last Action: Discontinued Oxycodone HCl/Acetaminophen (Oxycodone-Acetaminophen 10-325) 10 Mg-325 Mg Tablet, 1 EACH PO Q6H PRN for PAIN-MODERATE Discontinued Reason: Duplicate Order Prescribed by: JOANN HANEY on 06/21/23 1334 Last Action: Discontinued Pantoprazole Sodium (Protonix) 40 Mg Tablet.dr, 40 MG PO DAILY, (Reported) Discontinued Reason: Duplicate Order Entered as Reported by: JULIO HAMILTON on 06/05/22 0811 Last Action: Discontinued Pravastatin Sodium (Pravastatin Sodium) 20 Mg Tablet, 20 MG PO, (Reported) Discontinued Reason: No Longer Taking Entered as Reported by: Mikala Dolan on 06/15/23 1405 Last Action: Discontinued Promethazine HCl (Promethazine Tablet) 25 Mg Tablet, 25 MG PO Q6H PRN for NAUSEA/VOMITING Discontinued Reason: Duplicate Order Prescribed by: RANGEL AWAD on 07/28/23 1631 Last Action: Discontinued Past Wmyngwk-Ivxtoc-Ckgwid Hx Patient Social History Cigarettes Per Day: 20 Type Used: Cigarettes Alcohol Use?: No Seasonal Allergies Seasonal Allergies: No Surgeries History of Surgeries: Yes Surgeries: Appendectomy, Gallbladder, Hysterectomy Respiratory History of Respiratory Disorde: No Cardiovascular History of Cardiac Disorders: Yes Cardiac Disorders: High Cholesterol, Hypertension Neurological History of Neurological Disord: Yes Neurological Disorders: Neuropathy (in her lower extremities), Stroke 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 Genitourinary History of Genitourinary Disor: No (RIGHT URETHRA KIDNEY STENT) Gastrointestinal History of Gastrointestinal Di: No Musculoskeletal History of Musculoskeletal Dis: No Endocrine History of Endocrine Disorders: Yes Endocrine Disorders: Diabetes, Non-Insulin dep HEENT History of HEENT Disorders: No Cancer History of Cancer: Yes Cancer: Colon Psychosocial History of Psychiatric Problem: No Integumentary Skin/Integumentary Disorders: Psoriasis Blood Transfusions History of Blood Disorders: No Adverse Reaction to a Blood Tr: No Family Medical History Significant Family History: Cancer (Skin cancer ), Hypertension, Renal Disease (sister had polycystic kidney disease ) Review of Systems-General Constitutional: No chills, No fever EENTM: No hearing loss, No ear pain, No blurred vision, No double vision, No eye pain, No vision loss, No mouth pain, No throat pain Respiratory: No cough, No dyspnea on exertion Cardiovascular: No chest pain, No edema, No palpitations Gastrointestinal: abdominal pain (RLQ), diarrhea; No hematemesis, No heartburn; nausea, vomiting Genitourinary: No dysuria, No frequency Musculoskeletal: back pain (lower back pain ) Psychiatric/Neurological: Denies Headache; Other (has some neuropathic pain in her legs) Physical Exam-General Problems Physical Exam Vital Signs Vital Signs - First Documented 07/30/23 11:18 Temp 37.1 Pulse 93 Resp 20 B/P (MAP) 146/86 (106) Pulse Ox 100 O2 Delivery Room Air Capillary Refill : General Appearance: no apparent distress HEENT: PERRL/EOMI; No pharyngeal erythema, No tonsillar exudate Respiratory: lungs clear, normal breath sounds, no respiratory distress Cardiovascular: regular rate, rhythm, no edema, no murmur Peripheral Pulses: 3+ Dorsalis Pedis (R), 3+ Left Dors-Pedis (L), 3+ Radial Pulses (R), 3+ Radial Pulses (L) Gastrointestinal: normal bowel sounds, soft, no organomegaly, tenderness (some slight tenderness in RUQ) Back: no CVA tenderness Extremities: no pedal edema Neurologic/Psychiatric: alert Skin: normal color, warm/dry Data Review Labs Laboratory Tests 07/30/23 11:27: White Blood Count 7.0, Red Blood Count 3.78L, Hemoglobin 11.2L, Hematocrit 35, Mean Corpuscular Volume 91, Mean Corpuscular Hemoglobin 30, Mean Corpuscular Hemoglobin Concent 33, Red Cell Distribution Width 15.7H, Platelet Count 280, Mean Platelet Volume 9.4, Immature Granulocyte % (Auto) 0, Neutrophils (%) (Auto) 77H, Lymphocytes (%) (Auto) 19, Monocytes (%) (Auto) 3, Eosinophils (%) (Auto) 1, Basophils (%) (Auto) 0, Neutrophils # (Auto) 5.4, Lymphocytes # (Auto) 1.3, Monocytes # (Auto) 0.2, Eosinophils # (Auto) 0.1, Basophils # (Auto) 0.0, Immature Granulocyte # (Auto) 0.0, Sodium Level 135, Potassium Level 3.4L, Chlo ride Level 101, Carbon Dioxide Level 22, Anion Gap 12, Blood Urea Nitrogen 10, Creatinine 0.81, Estimat Glomerular Filtration Rate 77, BUN/Creatinine Ratio 12, Glucose Level 184H, Calcium Level 9.1, Corrected Calcium 9.3, Magnesium Level 1.9, Total Bilirubin 0.6, Aspartate Amino Transf (AST/SGOT) 10, Alanine Aminotransferase (ALT/SGPT) 8, Alkaline Phosphatase 57, C-Reactive Protein High Sensitivity 6.50H, Total Protein 6.4, Albumin 3.7, Lipase 36 07/30/23 12:38: Urine Color YELLOW, Urine Clarity CLEAR, Urine pH 7.0, Urine Specific [place] 1.015L, Urine Protein 2+H, Urine Glucose (UA) NEGATIVE, Urine Ketones 1+H, Urine Nitrite NEGATIVE, Urine Bilirubin NEGATIVE, Urine Urobilinogen 0.2, Urine Leukocyte Esterase NEGATIVE, Urine RBC (Auto) NEGATIVE, Urine RBC NONE, Urine WBC NONE, Urine Squamous Epithelial Cells 0-2, Urine Crystals NONE, Urine Bacteria NEGATIVE, Urine Casts NONE, Urine Mucus SMALLH, Urine Culture Indicated NO Radiology CT abdomen/pelvis IMPRESSION: 1. Diffuse wall thickening throughout the residual colon has developed since prior examination and is suspicious for acute colitis. This is most likely infectious in etiology given the entire colon is involved. 2. No bowel obstruction, abscess, or perforation. 3. Ventral hernia repair with a thin fluid collection along the deep surface of the anterior abdominal wall. This is most likely postoperative seroma, but if there is concern for infection, then this would be amenable to CT-guided aspiration. Assessment/Plan Assessment/Plan Assessment/Plan Diffuse thickening of the colon wall suspected colitis Nausea/ vomiting Diarrhea Seroma Plan: Stool culture Symptom management. JOANN HANEY DO 07/31/23 1444: History of Present Illness History of Present Illness Time Seen by Provider: 15:49 History of Present Illness Surgery asked to consult regarding Colitis and diarrhea. HPI per ED: This is 72-year-old woman presents to the emergency room with complaints of nausea, vomiting, and diarrhea for the past 5 days after receiving chemotherapy for colon cancer. She has had colon resection for treatment of the cancer but reports metastatic disease and at least 1 lymph node for which she is now receiving chemotherapy under the direction of Dr. Segovia. [facility] this morning and was referred to the emergency room as she was actively vomiting. She had taken Phenergan this morning without much improvement. She reports Phenergan and Zofran have minimal effect. She denies any significant pain but has some minor tenderness to the lower abdomen on palpation. She denies any fever or chills, cough, shortness of breath, or other symptoms of acute infectious illness. She was seen in this ER 2 days ago and treated with antiemetics and hydration. At that time she had a WBC of 15 and mild elevation in lipase of 91. Patient also notes she had a hernia repair about a month ago. When I saw pt she looked tired/run down and possibly ill. She had just come out of the bathroom, left diarrhea for stool sample. Allergies and Home Medications Allergies Coded Allergies: leucovorin (Verified Allergy, Intermediate, 06/19/23) maybe oxaliplatin or leucovorin causing rash oxaliplatin (Verified Allergy, Unknown, 06/15/23) elevated blood pressure Patient Home Medication List Home Medication List Reviewed: Yes ALPRAZolam (ALPRAZolam) 0.25 Mg Tablet, 0.25 MG PO TID PRN for ANXIETY, (Reported) Entered as Reported by: JES CORTEZ on 08/12/21 1044 Last Action: Reviewed Amlodipine Besylate (Amlodipine Besylate) 5 Mg Tablet, 5 MG PO DAILY, (Reported) Entered as Reported by: JOELLE WILLIAM on 06/24/21 1059 Last Action: Reviewed Diphenoxylate HCl/Atropine (Diphenoxylate-Atrop 2.5-0.025) 2.5 Mg-0.025 Mg Tablet, 2 EA PO QID PRN for LOOSE STOOLS, (Reported) Entered as Reported by: CRISTEL ADLER on 07/31/23 1056 Last Action: Reviewed Ferrous Sulfate (Iron) 325 Mg (65 Mg Iron) Tablet, 325 MG PO DAILY, (Reported) Entered as Reported by: CRISTEL ADLER on 07/31/23 1056 Last Action: Reviewed Gabapentin (Neurontin) 300 Mg Capsule, 300 MG PO TID, (Reported) Entered as Reported by: CRISTEL ADLER on 07/31/23 1056 Last Action: Reviewed Glimepiride (Glimepiride) 2 Mg Tablet, 2 MG PO BID, (Reported) Entered as Reported by: JES CORTEZ on 08/12/211043 Last Action: Reviewed Lisinopril (Lisinopril) 20 Mg Tablet, 20 MG PO BID, (Reported) Entered as Reported by: JES CORTEZ on 08/12/211043 Last Action: Reviewed Metformin HCl (Metformin HCl) 1,000 Mg Tablet, 1,000 MG PO BID, (Reported) Entered as Reported by: JES CORTEZ on 08/12/211043 Last Action: Reviewed Morphine Sulfate (Morphine Sulfate ER) 30 Mg Tablet.er, 30 MG PO Q12H PRN for PAIN-SEVERE (8-10), (Reported) Entered as Reported by: CRISTEL ADLER on 07/31/23 105 Last Action: Reviewed Ondansetron HCl (Ondansetron HCl) 8 Mg Tablet, 8 MG PO TID PRN for NAUSEA/VOMITING-1ST LINE, (Reported) Entered as Reported by: CRISTEL ADLER on 07/31/231055 Last Action: Reviewed Oxycodone HCl/Acetaminophen (Endocet 10-325 mg Tablet) 10 Mg-325 Mg Tablet, 1 EA PO Q6H PRN for PAIN-MODERATE (5-7), (Reported) Entered as Reported by: CRISTEL ADLER on 07/31/231055 Last Action: Reviewed Pantoprazole Sodium (Pantoprazole Sodium) 40 Mg Tablet.dr, 40 MG PO DAILY, (Reported) Entered as Reported by: CRISTEL ADLER on 07/31/23 105 Last Action: Reviewed Pravastatin Sodium (Pravastatin Sodium) 20 Mg Tablet, 20 MG PO HS, (Reported) Entered as Reported by: JOELLE WILLIAM on 06/24/21 1059 Last Action: Reviewed Promethazine HCl (Promethazine Tablet) 25 Mg Tablet, 25 MG PO Q6H PRN for NAUSEA/VOMITING-1ST LINE, (Reported) Entered as Reported by: CRISTEL ADLER on 07/31/231055 Last Action: Reviewed Discontinued Medications Acyclovir (Acyclovir) 5 % Cream..g., 5 GM TP, (Reported) Discontinued Reason: Duplicate Order Entered as Reported by: Mikala Dolan on 06/15/23 1405 Last Action: Discontinued Alprazolam (Alprazolam) 1 Mg Tablet, 1 MG PO, (Reported) Discontinued Reason: Duplicate Order Entered as Reported by: Mikala Dolan on 06/15/231404 Last Action: Discontinued Amlodipine Besylate (Amlodipine Besylate) 2.5 Mg Tablet, 2.5 MG PO DAILY, (Reported) Discontinued Reason: Duplicate Order Entered as Reported by: Mikala Dolan on 06/15/231404 Last Action: Discontinued Cetirizine HCl (Zyrtec) 10 Mg Capsule, 10 MG PO, (Reported) Discontinued Reason: Duplicate Order Entered as Reported by: Mikala Dolan on 06/15/231404 Last Action: Discontinued Docusate Sodium (Colace) 100 Mg Capsule, 100 MG PO DAILY PRN for CONSTIPATION- 1ST LINE, (Reported) Discontinued Reason: Duplicate Order Entered as Reported by: JES CORTEZ on 08/12/21 1044 Last Action: Discontinued Glimepiride (Glimepiride) 2 Mg Tablet, 2 MG PO, (Reported) Discontinued Reason: No Longer Taking Entered as Reported by: Mikala Dolan on 06/15/231404 Last Action: Discontinued Lisinopril (Lisinopril) 20 Mg Tablet, 20 MG PO DAILY, (Reported) Discontinued Reason: No Longer Taking Entered as Reported by: Mikala Dolan on 06/15/231404 Last Action: Discontinued Metformin HCl (Metformin HCl) 1,000 Mg Tablet, 1,000 MG PO, (Reported) Discontinued Reason: Duplicate Order Entered as Reported by: Mikala Dolan on 06/15/231404 Last Action: Discontinued Morphine Sulfate/0.9% NaCl/Pf (Morphine 30 mg/30 ml-NaCl Syrg) 30 Mg/30 Ml (1 Mg/Ml) Hand Lens Polisher.syring, 30 MG IV, (Reported) Discontinued Reason: Duplicate Order Entered as Reported by: Mikala Dolan on 06/15/231404 Last Action: Discontinued Ondansetron (Ondansetron Odt) 8 Mg Tab.rapdis, 8 MG SL Q4H PRN for NAUSEA/VOMITING, (Reported) Discontinued Reason: Duplicate Order Entered as Reported by: Mikala Dolan on 06/15/231404 Last Action: Discontinued Oxycodone HCl/Acetaminophen (Oxycodone-Acetaminophen 10-325) 10 Mg-325 Mg Tablet, 1 EACH PO Q6H PRN for PAIN-MODERATE Discontinued Reason: Duplicate Order Prescribed by: JOANN HANEY on 06/21/23 1334 Last Action: Discontinued Pantoprazole Sodium (Protonix) 40 Mg Tablet.dr, 40 MG PO DAILY, (Reported) Discontinued Reason: Duplicate Order Entered as Reported by: JULIO HAMILTON on 06/05/22 0811 Last Action: Discontinued Pravastatin Sodium (Pravastatin Sodium) 20 Mg Tablet, 20 MG PO, (Reported) Discontinued Reason: No Longer Taking Entered as Reported by: Mikala Dolan on 06/15/23 1405 Last Action: Discontinued Promethazine HCl (Promethazine Tablet) 25 Mg Tablet, 25 MG PO Q6H PRN for NAUSEA/VOMITING Discontinued Reason: Duplicate Order Prescribed by: RANGEL AWAD on 07/28/23 1631 Last Action: Discontinued Past Nrrcmgp-Fhnnrj-Xrjyqe Hx Patient Social History Smoking Status: Current Someday Smoker Type Used: Cigarettes Alcohol Use?: No Seasonal Allergies Seasonal Allergies: No Surgeries History of Surgeries: Yes Surgeries: Appendectomy, Gallbladder, Hysterectomy Respiratory History of Respiratory Disorde: Yes Respiratory Disorders: COPD Cardiovascular History of Cardiac Disorders: Yes Cardiac Disorders: High Cholesterol, Hypertension Neurological History of Neurological Disord: Yes Neurological Disorders: Neuropathy (in her lower extremities), Stroke Genitourinary History of Genitourinary Disor: Yes (right ureteral stent) Gastrointestinal History of Gastrointestinal Di: Yes (hx of colon CA and resection) Gastrointestinal Disorders: Colitis, Gastroesophageal Reflux Cancer History of Cancer: Yes Cancer: Colon Psychosocial History of Psychiatric Problem: No Family Medical History Significant Family History: Cancer (Skin cancer ), Hypertension, Renal Disease (sister had polycystic kidney disease ) Review of Systems-General Constitutional: No chills, No fever; malaise, weakness EENTM: No blurred vision, No vision loss, No mouth pain, No epistaxis Respiratory: No cough, No dyspnea on exertion Cardiovascular: No chest pain, No edema, No palpitations Gastrointestinal: abdominal pain (RLQ), diarrhea; No hematemesis, No heartburn, No melena; nausea, vomiting Genitourinary: No dysuria, No frequency Musculoskeletal: back pain (lower back pain ), joint pain, muscle stiffness Skin: No change in color, No change in hair/nails Psychiatric/Neurological: Denies Headache; Other (has some neuropathic pain in her legs) Physical Exam-General Problems Physical Exam General Appearance: mild distress, thin Eyes: Bilateral Eye PERRL, Bilateral Eye EOMI HEENT: pharynx normal; No scleral icterus (L) Neck: non-tender, supple Respiratory: lungs clear, normal breath sounds, no respiratory distress, no accessory muscle use Cardiovascular: regular rate, rhythm, no edema, no murmur Gastrointestinal: soft, no organomegaly, tenderness (some slight tenderness in RUQ); No hernia Back: no CVA tenderness Extremities: no pedal edema Neurologic/Psychiatric: alert, oriented x 3 Skin: normal color, warm/dry Lymphatic: no adenopathy (neck, axilla or groin) Assessment/Plan Assessment/Plan Assessment/Plan Diffuse thickening of the colon wall suspected colitis Nausea/ vomiting Diarrhea Seroma Plan: Stool culture Symptom management. I spoke with ED physician and Hospitalist, I also went over her films myself. The hernia repair looks good, seroma seen is normal. I don't think this has anything to do with recent hernia repair. Supervisory-Addendum Brief Verification & Attestation Participated in pt care: history, MDM, physical Personally performed: exam, history, MDM, supervision of care Care discussed with: Medical Student Procedures: n/a Verification and Attestation of Medical Student E/M Service A medical student performed and documented this service. I then reviewed and verified all information documented by the medical student and made modifications to such information, when appropriate. I personally performed a physical exam, medical decision making and then discussed any differences between the notes and made revisions as necessary to create one note. Joann Haney , 07/31/23 , 14:44 AYAD ENRIQUEZ Jul 30, 2023 16:13 JOANN HNAEY DO Jul 31, 2023 14:44
[2023-07-30 16:15] VITALS: BP 149/78
[2023-07-30] MEDS: POTASSIUM CHLORIDE INJ 20 MEQ in D5 NS 1,000 ML IV SOLN 1,000 ML IV SCH (16:57)
[2023-07-30] MEDS: NS IV 1000 ML 1,000 ML IV SCH (16:59)
[2023-07-30] MEDS: ONDANSETRON INJECTION 4 MG/2 ML (SDV) IV PRN (17:07)
[2023-07-30] MEDS: VANCOMYCIN 125 MG CAPSULE PO SCH ×2 (17:51→23:42)
[2023-07-30 19:28] VITALS: BP 186/82
[2023-07-30] MEDS: PROMETHAZINE INJ 25 MG/ML VIAL IVP PRN (19:34)
[2023-07-30] MEDS: RT-Ipratropium/Albuterol NEB 3 ML VIAL INH SCH (20:17)
[2023-07-30] MEDS: inSUlin ASPART 1 UNIT/0.01 ML (PER UNIT) SC SCH (20:30)
[2023-07-30] MEDS ORDERED: PIPERACILLIN/Tazobactam 4.5 GM in NS (IVPB) 100 ML 100 ML IV SCH (22:00)
[2023-07-30 23:43] VITALS: BP 143/65
[2023-07-31] MEDS: NS IV 1000 ML 1,000 ML IV SCH ×4 (00:48→18:26)
[2023-07-31] MEDS: POTASSIUM CHLORIDE INJ 20 MEQ in D5 NS 1,000 ML IV SOLN 1,000 ML IV SCH (00:48)
[2023-07-31 03:18] VITALS: BP 149/70
[2023-07-31] MEDS: PROMETHAZINE INJ 25 MG/ML VIAL IVP PRN (04:50)
[2023-07-31 04:51] LABS: HEMATOCRIT 29 % (35-52); HEMOGLOBIN 9.6 g/dL (11.5-16.0); MEAN CORPUSCULAR HEMOGLOBIN 30 pg (25-34); MEAN CORPUSCULAR HGB CONC 33 g/dL (32-36); MEAN CORPUSCULAR VOLUME 90 fL (80-99); MEAN PLATELET VOLUME 9.5 fL (9.0-12.2); PLATELET COUNT 190 10^3/uL (130-400); WHITE BLOOD COUNT 5.8 10^3/uL (4.3-11.0)
[2023-07-31 05:15] LABS: CALCIUM 7.7 MG/DL (8.5-10.1); CREATININE SERUM 0.72 MG/DL (0.60-1.30); POTASSIUM 3.2 MMOL/L (3.6-5.0)
[2023-07-31] MEDS: VANCOMYCIN 125 MG CAPSULE PO SCH ×4 (05:46→23:48)
[2023-07-31 07:02] VITALS: BP 149/65
--- NOTE | 2023-07-31 07:43 | Progress Note - Surgery ---
AYAD ENRIQUEZ 07/31/23 0743: Subjective Date Seen by a Provider: Jul 31, 2023 Time Seen by a Provider: 07:45 Subjective/Events-last exam Mrs. Wallace is feeling a little better this morning but she is still having significant N/V and diarrhea. Her last episode of diarrhea was this morning and was dark/black but she did mention she regularly took an iron pill untill a week ago. Her last episode of vomiting was last night and she has not seen any bright red blood or bloody discoloration. She feels the phenergan has helped with the nausea and vomiting but she still has sever nausea. She feels like the lack of food she has had also is contributing to her nausea and was wanting something like oatmeal to see if that would help. She also complains of worsening cramping lower back pain that she rates a 8/10 but has not pain to palpation over the lower back. Review of Systems General: No Chills HEENT: No Head Aches, No Visual Changes, No Eye Pain, No Ear Pain, No Dysphasia Pulmonary: No Dyspnea, No Cough Cardiovascular: No: Chest Pain, Palpitations Gastrointestinal: Nausea, Vomiting, Diarrhea; No: Abdominal Pain Genitourinary: No Dysuria Musculoskeletal: leg pain (neuropathic right leg pain); No: neck pain, shoulder pain Objective Exam Vital Signs Date Time Temp Pulse Resp B/P (MAP) Pulse Ox O2 Delivery O2 Flow Rate FiO2 07/31/23 07:02 36.7 66 18 149/65 (93) 97 Room Air 07/31/23 03:18 73 18 149/70 (96) 97 Room Air 07/30/23 23:43 37.0 72 16 143/65 (91) 97 Room Air 07/30/23 20:17 97 Room Air 07/30/23 20:00 Room Air 07/30/23 19:28 36.6 75 16 186/82 (116) 97 Room Air 07/30/23 16:19 Room Air 07/30/23 16:15 36.8 77 99 07/30/23 15:50 36.5 77 16 145/67 (93) 99 Room Air 07/30/23 15:28 36.8 77 18 149/78 99 Room Air 07/30/23 11:18 37.1 93 20 146/86 (106) 100 Room Air I & O 07/31/23 07:00 Intake Total 1220 ml Balance 1220 ml Capillary Refill : General Appearance: No Apparent Distress HEENT: PERRL/EOMI Neck: Non Tender, Supple Respiratory: Lungs Clear, Normal Breath Sounds, No Respiratory Distress Cardiovascular: Regular Rate, Rhythm, No Edema, No Murmur Peripheral Pulses: 3+ Dorsalis Pedis (R), 3+ Left Dors-Pedis (L), 3+ Radial Pulses (R), 3+ Radial Pulses (L) Gastrointestinal: normal bowel sounds, non tender, soft Extremity: No Pedal Edema Neurologic/Psychiatric: Alert Skin: Normal Color, Warm/Dry Lymphatic: No Adenopathy (cervical or supraclavicular ) Results Lab Laboratory Tests 07/30/23 11:27: White Blood Count 7.0, Red Blood Count 3.78L, Hemoglobin 11.2L, Hematocrit 35, Mean Corpuscular Volume 91, Mean Corpuscular Hemoglobin 30, Mean Corpuscular Hem oglobin Concent 33, Red Cell Distribution Width 15.7H, Platelet Count 280, Mean Platelet Volume 9.4, Immature Granulocyte % (Auto) 0, Neutrophils (%) (Auto) 77H , Lymphocytes (%) (Auto) 19, Monocytes (%) (Auto) 3, Eosinophils (%) (Auto) 1, Basophils (%) (Auto) 0, Neutrophils # (Auto) 5.4, Lymphocytes # (Auto) 1.3, Monocytes # (Auto) 0.2, Eosinophils # (Auto) 0.1, Basophils # (Auto) 0.0, Immature Granulocyte # (Auto) 0.0, Sodium Level 135, Potassium Level 3.4L, Chloride Level 101, Carbon Dioxide Level 22, Anion Gap 12, Blood Urea Nitrogen 10, Creatinine 0.81, Estimat Glomerular Filtration Rate 77, BUN/Creatinine Ratio 12, Glucose Level 184H, Calcium Level 9.1, Corrected Calcium 9.3, Magnesium Level 1.9, Total Bilirubin 0.6, Aspartate Amino Transf (AST/SGOT) 10, Alanine Aminotransferase (ALT/SGPT) 8, Alkaline Phosphatase 57, C-Reactive Protein High Sensitivity 6.50H, Total Protein 6.4, Albumin 3.7, Lipase 36 07/30/23 12:38: Urine Color YELLOW, Urine Clarity CLEAR, Urine pH 7.0, Urine Specific Stanton 1 .015L, Urine Protein 2+H, Urine Glucose (UA) NEGATIVE, Urine Ketones 1+H, Urine Nitrite NEGATIVE, Urine Bilirubin NEGATIVE, Urine Urobilinogen 0.2, Urine Leukocyte Esterase NEGATIVE, Urine RBC (Auto) NEGATIVE, Urine RBC NONE, Urine WBC NONE, Urine Squamous Epithelial Cells 0-2, Urine Crystals NONE, Urine Bacteria NEGATIVE, Urine Casts NONE, Urine Mucus SMALLH, Urine Culture Indicated NO 07/30/23 20:21: Glucometer 187H 07/31/23 04:40: White Blood Count 5.8, Red Blood Count 3.18L, Hemoglobin 9.6L, Hematocrit 29L, Mean Corpuscular Volume 90, Mean Corpuscular Hemoglobin 30, Mean Corpuscular Hemoglobin Concent 33, Red Cell Distribution Width 15.5H, Platelet Count 190, Mean Platelet Volume 9.5, Sodium Level 137, Potassium Level 3.2L, Chloride Level 106, Carbon Dioxide Level 20L, Anion Gap 11, Blood Urea Nitrogen 4L, Creatinine 0.72, Estimat Glomerular Filtration Rate 89, BUN/Creatinine Ratio 6, Glucose Level 168H, Calcium Level 7.7L Microbiology 07/30/23 Fecal Leukocyte Stain - Final, Resulted 07/30/23 C. difficile GDH Antigen & Toxins - Final, Resulted 07/30/23 Stool Culture, Resulted Pending Assessment/Plan Assessment/Plan Assessment/Plan Diffuse thickening of the colon wall colitis- C Diff toxin positive Worsening back pain Nausea/ vomiting Diarrhea Seroma Plan: Oral Vancomycin Symptom management. SOLO BAH DO 07/31/23 1438: Subjective Time Seen by a Provider: 11:05 Subjective/Events-last exam Pt seen and examined, states she is doing much better than yesterday. She is already asking when she can go home. Review of Systems Pulmonary: No Dyspnea, No Cough Cardiovascular: No: Chest Pain, Palpitations Gastrointestinal: Nausea, Vomiting, Diarrhea; No: Abdominal Pain Musculoskeletal: leg pain (neuropathic right leg pain) Objective Exam General Appearance: No Apparent Distress, Thin Respiratory: Lungs Clear, Normal Breath Sounds, No Accessory Muscle Use, No Respiratory Distress Cardiovascular: Regular Rate, Rhythm, No Murmur Gastrointestinal: non tender, soft, no organomegaly Assessment/Plan Assessment/Plan Assessment/Plan Diffuse thickening of the colon wall colitis- C Diff toxin positive Worsening back pain Nausea/ vomiting Diarrhea Seroma Plan: Oral Vancomycin Symptom management. Supervisory-Addendum Brief Verification & Attestation Participated in pt care: history, MDM, physical Personally performed: exam, history, MDM, supervision of care Care discussed with: Medical Student Procedures: n/a Verification and Attestation of Medical Student E/M Service A medical student performed and documented this service. I then reviewed and verified all information documented by the medical student and made modifications to such information, when appropriate. I personally performed a physical exam, medical decision making and then discussed any differences between the notes and made revisions as necessary to create one note. Solo Bah , 07/31/23 , 14:38 AYAD ENRIQUEZ Jul 31, 2023 07:43 SOLO BAH DO Jul 31, 2023 14:38
[2023-07-31] MEDS: RT-Ipratropium/Albuterol NEB 3 ML VIAL INH SCH ×2 (08:15→21:23)
[2023-07-31] MEDS: PANTOPRAZOLE INJECTION 40 MG VIAL IV SCH (09:17)
[2023-07-31] MEDS: inSUlin ASPART 1 UNIT/0.01 ML (PER UNIT) SC SCH ×4 (09:27→20:51)
--- NOTE | 2023-07-31 10:04 | Physical Therapy Evaluation ---
PT Evaluation-General Medical Diagnosis Admission Date Jul 30, 2023 at 15:56 Medical Diagnosis: colitis Onset Date: Jul 30, 2023 Therapy Diagnosis Therapy Diagnosis: debilitly Precautions Precautions/Isolations: Contact Isolation Weight Bear Status Right Lower Extremity: Right Full Weight Bearing Left Lower Extremity: Left Full Weight Bearing Referral Physician: Janina Reason for Referral: Evaluation/Treatment Medical History Pertinent Medical History: CVA, DM, HTN Additional Medical History colon cancer with chemo Current History w/c from cancer center secondary to vomiting Reviewed History: Yes Social History Home: Single Level Current Living Status: Spouse Prior Prior Level of Function SCALE: Activities may be completed with or without assistive devices. 4-Nebnoobicj-[id number] completes the activity by him/herself with no assistance from a helper. 5-Set-up or Clean-up Assistance-helper sets up or cleans up; patient completes activity. [place] assists only prior to or following the activity. 4-Supervision or Touching Assistance-helper provides verbal cues and/or touching/steadying and/or contact guard assistance as patient completes activity. Assistance may be provided throughout the activity or intermittently. 3-Partial/Moderate Assistance-helper does LESS THAN HALF the effort. [place] lifts, holds or supports trunk or limbs, but provides less than half the effort. 2-Substantial/Maximal Assistance-helper does MORE THAN HALF the effort. [place] lifts or holds trunk or limbs and provides more than half the effort. 0-Trvcshgig-powglb does ALL the effort. Patient does none of the effort to complete the activity. Or, the assistance of 2 or more helpers is required for the patient to complete the activity. If activity was not attempted, code reason: 7-Patient Refused. 9-Not Applicable-not attempted and the patient did not perform the activity before the current illness, exacerbation or injury. 10-Not Attempted due to Environmental Limitations-(lack of equipment, weather restraints, etc.). 88-Not Attempted due to Medical Conditions or Safety Concerns. Bed Mobility: 6 Transfers (B,C,W/C): 6 Gait: 6 Stairs: 6 Indoor Mobility (Ambulation): Independent Stairs: Independent Prior Devices Use: None PT Evaluation-Current Subjective Patient agrees to PT. She report she is feeling much better and wants to eat. Objective Patient Orientation: Normal For Age Attachments: IV ROM/Strength ROM Lower Extremities bilateral LE WFL Strength Lower Extremities 4-/5 grossly bilateral LE all planes Integumentary/Posture Bowel Incontinence: No Bladder Incontinence: No Posture WFL Neuromuscular (Tone, Coordination, Reflexes) grossly intact Sensory Vision: Functional Hearing: Functional Transfers Sit to Stand (QC): 6 Gait Mode of Locomotion: Walk Anticipated Mode of Locomotion: Walk Walk 10 feet (QC): 6 Walk 50 ft with 2 Turns(QC): 6 Walk 150 ft (QC): 6 Distance: 150' Gait Assistive Device: None Comments/Gait Description safe and functional with no deviation Balance Sitting Static: Normal Sitting Dynamic: Normal Standing Static: Normal Standing Dynamic: Normal Assessment/Needs Patient is currently at independent LOF with all gross motor skills safely and does not require skilled PT at this time. Rehab Potential: Fair PT Plan Treatment/Plan Treatment Plan: Discontinue PT Treatment Duration: Jul 31, 2023 Frequency: 1 time per week Estimated Hrs Per Day: .25 hour per day Patient and/or Family Agrees t: Yes Time Time In: 820 Time Out: 833 DATE: Jul 31, 2023 Total Billed Treatment Time: 13 Total Billed Treatment 1 visit [facility] 13 min SONJA JASSO PT Jul 31, 2023 10:04
[2023-07-31] MEDS: ONDANSETRON INJECTION 4 MG/2 ML (SDV) IV PRN ×2 (10:41→16:51)
[2023-07-31] MEDS ORDERED: MORP-69 PO (10:56)
[2023-07-31] MEDS ORDERED: PROM25TA14 PO (10:56)
[2023-07-31] MEDS ORDERED: FERR-84 PO (10:56)
[2023-07-31] MEDS ORDERED: PANT40TA52 PO (10:56)
[2023-07-31] MEDS ORDERED: OXYC-191 PO (10:56)
[2023-07-31] MEDS ORDERED: DIPH1TAB25 PO (10:56)
[2023-07-31] MEDS ORDERED: ONDA-106 PO (10:56)
[2023-07-31] MEDS ORDERED: GABA300C PO (10:56)
[2023-07-31 11:07] VITALS: BP 176/77
--- NOTE | 2023-07-31 11:45 | History & Physical-Hospitalist ---
TOMMY CARLSON 07/31/23 1145: History of Present Illness HPI/Chief Complaint 72F w/ a PMH of colon cancer and diabetes, receiving chemotherapy every other w [place], presents with a 3 week history of N/V/D. She initially attributed these sx to the chemo, but came in due to its persistence. While here, she tested positive for C. diff. She reports having lost 10lbs in the past 3 weeks and has had a poor appetite, but today she feels better and is hungry after being on Oral Vancomycin. Her last episode of N/V was last night and has had 2 loose BMs that were non-bloody but dark this morning, but she attributes it to her taking an iron supplement. She is also complaining of LBP that she attributes to a mix of the C. diff, her bed, and her chair. Source: patient Date Seen 07/31/23 Attending Physician Oly Ronquillo MD PCP Admitting Physician: Azar Roa MD Attending Physician: Azar Roa MD Referring Physician Date of Admission Jul 30, 2023 at 15:56 Home Medications & Allergies Home Medications Reviewed patient Home Medication Reconciliation performed by pharmacy medication reconciliations chief ophthalmic technician and/or nursing. Patients Allergies have been reviewed. Allergies Allergies Coded Allergies leucovorin (Verified Allergy, Intermediate, 06/19/23) maybe oxaliplatin or leucovorin causing rash oxaliplatin (Verified Allergy, Unknown, 06/15/23) elevated blood pressure Past Dxpphvh-[id number]-Abjjba Hx Patient Social History Marrital Status: Tobacco Use?: Yes Tobacco type used: Cigarettes Smoking Status: Current Everyday Smoker Approx how many per day: 10 Smokeless Tobacco Frequency: Current Everyday User Substance use?: No Alcohol Use?: No Pt feels they are or have been: No Immunizations Up To Date First/Initial COVID19 Vaccinat: no Second COVID19 Vaccination Osmel: no Tetanus Booster (TDap): More Than 5 Years Hepatitis A: No Hepatitis B: Yes Seasonal Allergies Seasonal Allergies: No Current Status status: No Advance Directives: No Communicates: Verbally Primary Language: Beninese Preferred Spoken Language: Beninese Is interpretation needed?: No Implanted or Applied Medical D: Stents (ureteral) Past Medical History Surgeries: Abdominal (Partial colon resection, hernia repair), Gallbladder (cholecystectomy), Hysterectomy (for fibroids), Renal (Ureteral stent) Currently Using CPAP: No Currently Using BIPAP: No 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 Bladder Infection (after ureteral stent) Colitis (diffusely thickened colon wall w/ seroma), C-Diff, Gall Bladder Disease (cholelithiasis) Diabetes, Non-Insulin dep Colon Did You Recieve Any Treatments: Yes What Type of Treatment Did You: Chemotherapy, Surgical Intervention (Partial bowel resection) Psoriasis Blood Disorders: No Adverse Reaction/Blood Tranf: No Family Medical History Cancer (dad, sibling skin cancer), Diabetes (mom) Review of Systems Constitutional: No chills, No fever; weight loss (10 lbs in last 3 weeks) EENTM: No blurred vision, No double vision Respiratory: No cough, No short of breath Cardiovascular: No chest pain, No palpitations Gastrointestinal: No abdominal pain; diarrhea; No hematemesis; nausea, vomiting, other (stool darker but on iron supplement) Genitourinary: No dysuria, No frequency, No hematuria Musculoskeletal: back pain; No joint pain Skin: No lesions, No rash Psychiatric/Neurological: Denies Anxiety, Denies Depressed Physical Exam Physical Exam Vital Signs Vital Signs - First Documented 07/30/23 11:18 Temp 37.1 Pulse 93 Resp 20 B/P (MAP) 146/86 (106) Pulse Ox 100 O2 Delivery Room Air Capillary Refill : Height, Weight, BMI Height: '" Weight: lbs. oz. kg; 20.10 BMI Method: General Appearance: No Apparent Distress, WD/WN, Chronically ill, Thin HEENT: PERRL/EOMI; No Scleral Icterus (L), No Scleral Icterus (R) Neck: Normal Inspection, Non Tender; No JVD Respiratory: Lungs Clear, Normal Breath Sounds, No Accessory Muscle Use, No Respiratory Distress Cardiovascular: Regular Rate, Rhythm, No Edema, No Gallop, No JVD, No Murmur Gastrointestinal: Non Tender, Soft; No Distended, No Guarding Extremity: Non Tender, No Pedal Edema Neurologic/Psychiatric: Alert, Oriented x3 Skin: Normal Color, Warm/Dry Results Results/Procedures Labs Laboratory Tests 07/30/23 11:27 07/31/23 04:40 Patient resulted labs reviewed. Assessment/Plan Assessment and Plan Non-septic, non-severe C. diff N/V/D Continue oral Vancomycin 125mg PO q6hr x10 days Continue Ondansetron 4mg IV Diffusely thickened colon wall w/ seroma Surgery consulted Colon cancer Managed by oncology Diabetes (168) Hold glimepiride Continue sliding scale insulin Hypokalemia (3.2) IV K+ through port Anemia (Hgb 9.6) Monitor Back pain Continue acetaminophen Insomnia Continue 0.25 mg xanax PRN DVT ppx Lovenox 40mg sc q12hr Resume normal diet AZAR ROA MD 07/31/23 1527: History of Present Illness Time Seen by a Provider: 10:30 Assessment/Plan Admission Diagnosis C diff Admission Status: Inpatient Order (span 2 midnights) Reason for Inpatient Admission: failed outpatient management Assessment and Plan Patient presented to [facility] due to intractable nausea and vomiting with diarrhea. She recently had a hernia repair with Dr Bah and has been undergoing chemo for colon cancer that has been resected. Stool sample was collected and is positive for c diff. She was start on oral vanc last night and is feeling better today. Her nausea has improved and she is asking to advance her diet. She has no new complaints today. Will continue IVF and and oral vanc, Resume home meds as able. Diagnosis/Problems Diagnosis/Problems (1) Colitis Status: Acute (2) Colon cancer Qualifiers: Colon location: unspecified part of colon Qualified Codes: C18.9 - Malignant neoplasm of colon, unspecified (3) Immunocompromised Status: Acute Supervisory-Addendum Brief Verification & Attestation Participated in pt care: history, MDM, physical Personally performed: exam, history, MDM, supervision of care Care discussed with: Medical Student Procedures: n/a Results interpretation: Verified all documentation Verification and Attestation of Medical Student E/M Service A medical student performed and documented this service in my presence. I reviewed and verified all information documented by the medical student and made modifications to such information, when appropriate. I personally performed the physical exam and medical decision making. Azar Roa, Jul 31, 2023,15:25 TOMMY CARLSON Jul 31, 2023 11:45 AZAR ROA MD Jul 31, 2023 15:27
[2023-07-31] MEDS: D5 NS + KCL 20 MEQ/L 1,000 ML 1,000 ML IV SCH ×3 (12:31→23:48)
[2023-07-31 15:48] VITALS: BP 187/81
[2023-07-31] MEDS ORDERED: oxyCODONE/ACETAMINOPHEN 10/325MG TABLET PO PRN (18:15)
[2023-07-31] MEDS ORDERED: MORPHINE SULFATE 30 MG PO PRN (18:15)
[2023-07-31] MEDS: GLIMEPIRIDE 2 MG TABLET PO SCH (18:26)
[2023-07-31] MEDS ORDERED: MORPHINE 30 MG PO PRN (18:30)
[2023-07-31 20:00] VITALS: BP 163/68
[2023-07-31] MEDS: ALPRAZolam 0.25 MG TABLET PO PRN (20:39)
[2023-07-31] MEDS: GABAPENTIN 300 MG CAPSULE PO SCH (20:39)
[2023-07-31] MEDS ORDERED: NON-FORMULARY MEDICATION 1 EA EA (Pravastatin Sodium 20 MG) PO SCH (21:00)
[2023-07-31 23:44] VITALS: BP 145/67
[2023-08-01] VITALS (7 sets, daily range): BP systolic 139–178; BP diastolic 65–79
[2023-08-01] MEDS: VANCOMYCIN 125 MG CAPSULE PO SCH ×4 (05:15→23:24)
[2023-08-01 05:29] LABS: HEMATOCRIT 30 % (35-52); HEMOGLOBIN 9.9 g/dL (11.5-16.0); MEAN CORPUSCULAR HEMOGLOBIN 30 pg (25-34); MEAN CORPUSCULAR HGB CONC 33 g/dL (32-36); MEAN CORPUSCULAR VOLUME 91 fL (80-99); MEAN PLATELET VOLUME 9.2 fL (9.0-12.2); PLATELET COUNT 205 10^3/uL (130-400); WHITE BLOOD COUNT 6.3 10^3/uL (4.3-11.0)
[2023-08-01 05:52] LABS: BUN/CREATININE RATIO 3; CALCIUM 7.5 MG/DL (8.5-10.1); CARBON DIOXIDE 20 MMOL/L (21-32); CHLORIDE 111 MMOL/L (98-107); CREATININE SERUM 0.66 MG/DL (0.60-1.30); GFR ESTIMATED 93; GLUCOSE 92 MG/DL (70-105); SODIUM 139 MMOL/L (135-145)
[2023-08-01] MEDS: inSUlin ASPART 1 UNIT/0.01 ML (PER UNIT) SC SCH ×4 (05:53→20:31)
[2023-08-01] MEDS ORDERED: POTASSIUM CHLORIDE 20 MEQ TABLET PO ONE (08:00)
--- NOTE | 2023-08-01 08:06 | Progress Note - Surgery ---
ENRIQUEZAYAD 08/01/2306: Subjective Date Seen by a Provider: Aug 01, 2023 Time Seen by a Provider: 08:00 Subjective/Events-last exam Patient is feeling good this morning. She denies having any nausea today but did have some yesterday but thinks that having some food will help. She had eaten a good portion of her breakfast this morning and is tolerating it well. She had some more normal bowel movments yesterday but this morning she has had 4 liquid bowel moments but denies any black/red discoloration. She denies having any vomiting today and yesterday. She has no abdominal pain or feelings of bloating. Patient is hopeful she can go home today but did have some questions about how long she should be concerned for contact precautions since she has a trip to see her grandchildren planned for this upcoming Sunday. Review of Systems General: No Chills, No Night Sweats HEENT: No Head Aches, No Visual Changes, No Eye Pain, No Ear Pain, No Dysphasia Pulmonary: No Dyspnea, No Cough Cardiovascular: No: Chest Pain, Palpitations Gastrointestinal: Diarrhea; No: Nausea, Vomiting, Abdominal Pain Genitourinary: No Dysuria Objective Exam Vital Signs Date Time Temp Pulse Resp B/P (MAP) Pulse Ox O2 Delivery O2 Flow Rate FiO2 08/01/23 07:43 36.4 64 18 157/70 (99) 99 Room Air 08/01/23 03:50 36.9 69 16 148/69 (95) 98 Room Air 07/31/23 23:44 36.4 66 15 145/67 (93) 98 Room Air 07/31/23 21:23 Room Air 07/31/23 20:00 36.4 82 19 163/68 (99) 99 Room Air 07/31/23 20:00 Room Air 07/31/23 15:48 36.9 74 16 187/81 (116) 100 Room Air 07/31/23 11:07 36.8 68 18 176/77 (110) 100 Room Air 07/31/23 08:17 99 Room Air I & O 08/01/23 07:00 Intake Total 1570 ml Balance 1570 ml Capillary Refill : General Appearance: No Apparent Distress, WD/WN HEENT: PERRL/EOMI; No Scleral Icterus (L), No Scleral Icterus (R) Neck: No JVD Respiratory: Lungs Clear, Normal Breath Sounds, No Accessory Muscle Use Cardiovascular: Regular Rate, Rhythm, No Edema, No Murmur Peripheral Pulses: 3+ Radial Pulses (R), 3+ Radial Pulses (L) Gastrointestinal: normal bowel sounds, non tender, soft, no organomegaly; No hernia Neurologic/Psychiatric: Alert, Oriented x3 Skin: Normal Color, Warm/Dry Results Lab Laboratory Tests 07/31/23 10:19: Glucometer 174H 07/31/23 16:32: Glucometer 149H 07/31/23 20:49: Glucometer 192H 08/01/23 05:21: White Blood Count 6.3, Red Blood Count 3.29L, Hemoglobin 9.9L, Hematocrit 30L, Mean Corpuscular Volume 91, Mean Corpuscular Hemoglobin 30, Mean Corpuscular Hemoglobin Concent 33, Red Cell Distribution Width 15.4H, Platelet Count 205, Mean Platelet Volume 9.2, Sodium Level 139, Potassium Level 3.0L, Chloride Level 111H, Carbon Dioxide Level 20L, Anion Gap 8, Blood Urea Nitrogen < 2L, Creatinine 0.66, Estimat Glomerular Filtration Rate 93, BUN/Creatinine Ratio 3, Glucose Level 92, Calcium Level 7.5L Microbiology 07/30/23 Fecal Leukocyte Stain - Final, Resulted 07/30/23 C. difficile GDH Antigen & Toxins - Final, Resulted 07/30/23 Stool Culture, Resulted Pending Assessment/Plan Assessment/Plan Assessment/Plan Diffuse thickening of the colon wall C. diff colitis Nausea/ vomiting (resolved) Diarrhea Seroma Plan: Continue Oral Vancomycin for 10 days. Continue full diet as tolerated. No surgical intervention for seroma. SOLO BAH DO 08/01/23 1835: Subjective Time Seen by a Provider: 16:41 Subjective/Events-last exam Pt seen and examined, states she feels much better but is still having some "loose" BMs. Review of Systems General: No Chills, No Night Sweats Pulmonary: Dyspnea; No Cough Cardiovascular: No: Chest Pain, Palpitations Gastrointestinal: Diarrhea; No: Nausea, Vomiting, Abdominal Pain Objective Exam General Appearance: No Apparent Distress, WD/WN HEENT: PERRL/EOMI Respiratory: Lungs Clear, Normal Breath Sounds, No Accessory Muscle Use, No Respiratory Distress Cardiovascular: Regular Rate, Rhythm, No Murmur Gastrointestinal: normal bowel sounds, non tender, soft, no organomegaly Skin: Normal Color, Warm/Dry Supervisory-Addendum Brief Verification & Attestation Participated in pt care: history, MDM, physical Personally performed: exam, history, MDM, supervision of care Care discussed with: Medical Student Procedures: n/a Verification and Attestation of Medical Student E/M Service A medical student performed and documented this service. I then reviewed and verified all information documented by the medical student and made modific ations to such information, when appropriate. I personally performed a physical exam, medical decision making and then discussed any differences between the notes and made revisions as necessary to create one note. Solo Bah , 08/01/23 , 18:35 AYAD ENRIQUEZ Aug 01, 2023 08:06 SOLO BAH DO Aug 01, 2023 18:35
[2023-08-01] MEDS: RT-Ipratropium/Albuterol NEB 3 ML VIAL INH SCH (08:16)
[2023-08-01] MEDS ORDERED: PANTOPRAZOLE 40 MG TABLET PO SCH (09:00)
[2023-08-01] MEDS: amLODIPine 5 MG TABLET PO SCH (09:14)
[2023-08-01] MEDS: GABAPENTIN 300 MG CAPSULE PO SCH ×3 (09:14→20:14)
[2023-08-01] MEDS: GLIMEPIRIDE 2 MG TABLET PO SCH ×2 (09:14→17:50)
[2023-08-01] MEDS: PANTOPRAZOLE INJECTION 40 MG VIAL IV SCH (09:14)
[2023-08-01] MEDS: D5 NS + KCL 20 MEQ/L 1,000 ML 1,000 ML IV SCH (09:19)
[2023-08-01] MEDS ORDERED: RT-Ipratropium/Albuterol NEB 3 ML VIAL INH PRN (10:00)
--- NOTE | 2023-08-01 16:15 | Progress Note - Hospitalist ---
TOMMY CARLSON 08/01/23 1615: Subjective HPI/CC On Admission 72F w/ a PMH of colon cancer and diabetes, receiving chemotherapy every other week, presents with a 3 week history of N/V/D. She initially attributed these sx to the chemo, but came in due to its persistence. While here, she tested positive for C. diff. She reports having lost 10lbs in the past 3 weeks and has had a poor appetite, but today she feels better and is hungry after being on Oral Vancomycin. Her last episode of N/V was last night and has had 2 loose BMs that were non-bloody but dark this morning, but she attributes it to her taking an iron supplement. She is also complaining of LBP that she attributes to a mix of the C. diff, her bed, and her chair. Subjective/Events-last exam Pt reports feeling better today. She has not had N/V since yesterday. She did have 3 watery BMs this morning, but she reports no abd pain and now rates her back pain at 3/10. She said she slept well after getting her normal 0.25mg xanax. She wondered if she will be able to travel on Sunday the due to her C. diff, and she was told ID would be consulted to get back to her. Review of Systems General: No Chills, No Night Sweats, No Fatigue HEENT: No Head Aches, No Visual Changes Pulmonary: No Dyspnea, No Cough Cardiovascular: No: Chest Pain, Palpitations Gastrointestinal: Diarrhea; No: Nausea, Vomiting, Abdominal Pain, Melena, Hematochezia Genitourinary: No Dysuria, No Frequency Musculoskeletal: back pain (improved from yesterday); No: neck pain, shoulder pain Neurological: No: Weakness, Numbness Objective Exam Vital Signs Vital Signs Date Time Temp Pulse Resp B/P (MAP) Pulse Ox O2 Delivery O2 Flow Rate FiO2 08/01/23 15:27 37.1 69 16 139/65 (89) 99 Room Air Capillary Refill : General Appearance: No Apparent Distress, WD/WN HEENT: PERRL/EOMI; No Scleral Icterus (L), No Scleral Icterus (R) Neck: Normal Inspection, Non Tender; No JVD Respiratory: Lungs Clear, Normal Breath Sounds, No Accessory Muscle Use, No Respiratory Distress Cardiovascular: Regular Rate, Rhythm, No Edema, No Gallop, No JVD, No Murmur Gastrointestinal: Non Tender, Soft; No Distended, No Guarding Extremity: Non Tender, No Pedal Edema Neurologic/Psychiatric: Alert, Oriented x3 Skin: Normal Color, Warm/Dry Results/Procedures Lab Laboratory Tests 08/01/23 05:21 Patient resulted labs reviewed. Assessment/Plan Assessment and Plan Assess & Plan/Chief Complaint Non-septic, non-severe C. diff N/V/D Continue oral Vancomycin 125mg PO q6hr x10 days Continue Ondansetron 4mg IV Diffusely thickened colon wall w/ seroma Surgery consulted Colon cancer Managed by oncology Diabetes (168) Hold glimepiride Continue sliding scale insulin Hypokalemia (3.0) IV K+ through port PO K+ supp Anemia (Hgb 9.6) Monitor Back pain Continue acetaminophen Insomnia Continue 0.25 mg xanax PRN DVT ppx Lovenox 40mg sc q12hr Hold fluids and let the patient resume a normal diet, and if she feels fine, she can leave tomorrow and isolate at home. AZAR ROA MD 08/01/232106: Assessment/Plan Assessment and Plan Assess & Plan/Chief Complaint Pt reports feeling better. Still had watery diarrhea this morning but less so and eating well without nausea today. Will DC IVF and if does well will DC home tomorrow. Supervisory-Addendum Brief Verification & Attestation Participated in pt care: history, MDM, physical Personally performed: exam, history, MDM, supervision of care Care discussed with: Medical Student Procedures: n/a Results interpretation: Verified all documentation Verification and Attestation of Medical Student E/M Service A medical student performed and documented this service in my presence. I reviewed and verified all information documented by the medical student and made modifications to such information, when appropriate. I personally performed the physical exam and medical decision making. Azar Roa, Aug 01, 2023,21:06 TOMMY CARLSON Aug 01, 2023 16:15 AZAR ROA MD Aug 01, 2023 21:07
[2023-08-01] MEDS: ALPRAZolam 0.25 MG TABLET PO PRN (20:16)
[2023-08-02 04:00] VITALS: BP 196/81
[2023-08-02] MEDS: VANCOMYCIN 125 MG CAPSULE PO SCH ×2 (05:03→12:08)
[2023-08-02 05:32] LABS: HEMATOCRIT 27 % (35-52); HEMOGLOBIN 8.8 g/dL (11.5-16.0); MEAN CORPUSCULAR HEMOGLOBIN 30 pg (25-34); MEAN CORPUSCULAR HGB CONC 33 g/dL (32-36); MEAN CORPUSCULAR VOLUME 91 fL (80-99); MEAN PLATELET VOLUME 9.7 fL (9.0-12.2); PLATELET COUNT 171 10^3/uL (130-400); WHITE BLOOD COUNT 7.5 10^3/uL (4.3-11.0)
[2023-08-02 05:33] LABS: POTASSIUM 2.9 MMOL/L (3.6-5.0)
[2023-08-02 05:34] LABS: CALCIUM 7.5 MG/DL (8.5-10.1)
[2023-08-02 05:39] LABS: CREATININE SERUM 0.67 MG/DL (0.60-1.30)
[2023-08-02] MEDS: inSUlin ASPART 1 UNIT/0.01 ML (PER UNIT) SC SCH ×2 (06:15→11:36)
[2023-08-02 08:20] VITALS: BP 161/73
--- NOTE | 2023-08-02 08:39 | Progress Note - Surgery ---
AYAD ENRIQUEZ 08/02/23 0839: Subjective Date Seen by a Provider: Aug 02, 2023 Time Seen by a Provider: 07:50 Subjective/Events-last exam Yenifer Wallace is feeling good this morning. She did continue to have loose watery bowel movements this morning that were watery and she has had other bowel movements that were just gas. She is tolerating her diet well and is overall feeling like she is improving and ready to go home. She denies having any nausea, vomiting, or abdominal pain today or yesterday. Review of Systems General: No Chills, No Night Sweats HEENT: No Head Aches, No Visual Changes, No Eye Pain, No Ear Pain, No Dysphasia Pulmonary: No Dyspnea, No Cough Cardiovascular: No: Chest Pain, Palpitations Gastrointestinal: Diarrhea; No: Nausea, Vomiting, Abdominal Pain Genitourinary: No Dysuria, No Frequency Objective Exam Vital Signs Date Time Temp Pulse Resp B/P (MAP) Pulse Ox O2 Delivery O2 Flow Rate FiO2 08/02/23 08:20 36.7 72 19 161/73 (102) 98 Room Air 08/02/23 04:00 36.6 74 18 196/81 (119) 98 Room Air 08/01/23 23:26 37.6 74 18 151/70 (97) 97 Room Air 08/01/23 20:35 37.3 72 16 162/72 (102) 98 Room Air 08/01/23 20:00 Room Air 08/01/23 15:27 37.1 69 16 139/65 (89) 99 Room Air 08/01/23 11:11 36.6 69 18 178/79 (112) 99 Room Air 08/01/23 09:24 Room Air I & O 08/02/23 07:00 Intake Total 1891 ml Balance 1891 ml Capillary Refill : General Appearance: No Apparent Distress, WD/WN HEENT: PERRL/EOMI, Moist Mucous Membranes; No Pharyngeal Erythema Neck: Non Tender, Supple; No JVD Respiratory: Lungs Clear, Normal Breath Sounds, No Accessory Muscle Use Cardiovascular: Regular Rate, Rhythm, No Edema, No Murmur Peripheral Pulses: 3+ Radial Pulses (R), 3+ Radial Pulses (L) Gastrointestinal: normal bowel sounds, non tender, soft, no organomegaly Neurologic/Psychiatric: Alert Skin: Normal Color, Warm/Dry Lymphatic: No Adenopathy (cervical or supraclavicular ) Results Lab Laboratory Tests 08/01/23 11:17: Glucometer 181H 08/01/23 15:31: Glucometer 132H 08/01/23 20:28: Glucometer 81 08/02/23 05:13: Glucometer 54*L 08/02/23 05:15: White Blood Count 7.5, Red Blood Count 2.96L, Hemoglobin 8.8L, Hematocrit 27L, Mean Corpuscular Volume 91, Mean Corpuscular Hemoglobin 30, Mean Corpuscular Hemoglobin Concent 33, Red Cell Distribution Width 15.7H, Platelet Count 171, Mean Platelet Volume 9.7, Sodium Level 138, Potassium Level 2.9L, Chloride Level 110H, Carbon Dioxide Level 20L, Anion Gap 8, Blood Urea Nitrogen 2L, Creatinine 0.67, Estimat Glomerular Filtration Rate 93, BUN/Creatinine Ratio 3, Glucose Level 54*L, Calcium Level 7.5L Microbiology 07/30/23 Fecal Leukocyte Stain - Final, Resulted 07/30/23 C. difficile GDH Antigen & Toxins - Final, Resulted 07/30/23 Stool Culture - Preliminary, Resulted Culture In Progress Assessment/Plan Assessment/Plan Assessment/Plan Diffuse thickening of the colon wall C. diff colitis Diarrhea Seroma Plan: Continue Oral Vancomycin for 10 days. Continue full diet as tolerated. SOLO BAH DO 08/02/23 1411: Subjective Time Seen by a Provider: 11:57 Subjective/Events-last exam Pt seen and examined, no complaints and states she is going home today. Review of Systems Pulmonary: No Dyspnea, No Cough Cardiovascular: No: Chest Pain, Palpitations Gastrointestinal: Diarrhea; No: Nausea, Vomiting, Abdominal Pain Objective Exam General Appearance: No Apparent Distress, Thin Respiratory: Lungs Clear, Normal Breath Sounds, No Accessory Muscle Use Cardiovascular: Regular Rate, Rhythm, No Murmur Gastrointestinal: non tender, soft, no organomegaly Assessment/Plan Assessment/Plan Assessment/Plan Diffuse thickening of the colon wall C. diff colitis Diarrhea Seroma Plan: Continue Oral Vancomycin for 10 days. Continue full diet as tolerated. Supervisory-Addendum Brief Verification & Attestation Participated in pt care: history, MDM, physical Personally performed: exam, history, MDM, supervision of care Care discussed with: Medical Student Procedures: n/a Verification and Attestation of Medical Student E/M Service A medical student performed and documented this service. I then reviewed and verified all information documented by the medical student and made modifications to such information, when appropriate. I personally performed a physical exam, medical decision making and then discussed any differences between the notes and made revisions as necessary to create one note. Solo Bah , 08/02/23 , 14:11 AYAD ENRIQUEZ Aug 02, 2023 08:39 SOLO BAH DO Aug 02, 2023 14:11
[2023-08-02] MEDS: amLODIPine 5 MG TABLET PO SCH (08:49)
[2023-08-02] MEDS: GABAPENTIN 300 MG CAPSULE PO SCH ×2 (08:49→12:08)
[2023-08-02] MEDS: GLIMEPIRIDE 2 MG TABLET PO SCH (08:49)
[2023-08-02] MEDS: PANTOPRAZOLE INJECTION 40 MG VIAL IV SCH (08:49)
[2023-08-02] MEDS ORDERED: POTASSIUM CHLORIDE 20 MEQ TABLET PO ONE ×2 (09:45→10:15)
--- NOTE | 2023-08-02 11:43 | Discharge Summary ---
Diagnosis/Chief Complaint Date of Admission Jul 30, 2023 at 15:56 Date of Discharge Admission Diagnosis C diff Primary Care Oly Ronquillo MD Discharge Diagnosis (1) Colitis Status: Acute (2) Colon cancer (3) Immunocompromised Status: Acute Discharge Summary Discharge Physical Exam Allergies: Coded Allergies: leucovorin (Verified Allergy, Intermediate, 06/19/23) maybe oxaliplatin or leucovorin causing rash oxaliplatin (Verified Allergy, Unknown, 06/15/23) elevated blood pressure Vitals & I&Os Vital Signs Date Time Temp Pulse Resp B/P (MAP) Pulse Ox O2 Delivery O2 Flow Rate FiO2 08/02/23 08:30 Room Air 08/02/23 08:20 36.7 72 19 161/73 (102) 98 General Appearance: No Apparent Distress, WD/WN HEENT: PERRL/EOMI; No Scleral Icterus (L), No Scleral Icterus (R) Respiratory: Lungs Clear, Normal Breath Sounds, No Accessory Muscle Use, No Respiratory Distress Cardiovascular: Regular Rate, Rhythm, No Edema, No Gallop, No JVD, No Murmur Gastrointestinal: Non Tender, Soft; No Distended, No Guarding Extremity: Non Tender, No Pedal Edema Skin: Normal Color, Warm/Dry Neurologic/Psychiatric: Alert, Oriented x3 Hospital Course Yenifer Wallace is a 72F that presented after 3 weeks of N/V, LBP, and non-bloody, non-black diarrhea. She tested positive for C. diff. Her non-septic, non-severe C. diff has been treated with Oral Vancomycin. She no longer has N/V; her LBP has improved to a 3/10; and her BMs are now just loose and not as watery. Her other chronic conditions have been managed during her stay. She will be sent home with Vancomycin capsules to take for 10 days, and was advised on how long to isolate and to advise any provider of her recent C. diff infection if she n eeds abx again within 3 months. Labs (last 24 hrs) Laboratory Tests 08/01/23 15:31: Glucometer 132H 08/01/23 20:28: Glucometer 81 08/02/23 05:13: Glucometer 54*L 08/02/23 05:15: White Blood Count 7.5, Red Blood Count 2.96L, Hemoglobin 8.8L, Hematocrit 27L, Mean Corpuscular Volume 91, Mean Corpuscular Hemoglobin 30, Mean Corpuscular Hemoglobin Concent 33, Red Cell Distribution Width 15.7H, Platelet Count 171, Mean Platelet Volume 9.7, Sodium Level 138, Potassium Level 2.9L, Chloride Level 110H, Carbon Dioxide Level 20L, Anion Gap 8, Blood Urea Nitrogen 2L, Creatinine 0.67, Estimat Glomerular Filtration Rate 93, BUN/Creatinine Ratio 3, Glucose Level 54*L, Calcium Level 7.5L Microbiology 07/30/23 Fecal Leukocyte Stain - Final, Complete 07/30/23 C. difficile GDH Antigen & Toxins - Final, Complete 07/30/23 Stool Culture - Final, Complete Patient resulted labs reviewed. Pending Labs Laboratory Tests 08/02/23 05:13: Glucometer 54 08/02/23 05:15: White Blood Count 7.5, Red Blood Count 2.96, Hemoglobin 8.8, Hematocrit 27, Mean Corpuscular Volume 91, Mean Corpuscular Hemoglobin 30, Mean Corpuscular Hemoglobin Concent 33, Red Cell Distribution Width 15.7, Platelet Count 171, Mean Platelet Volume 9.7, Sodium Level 138, Potassium Level 2.9, Chloride Level 110, Carbon Dioxide Level 20, Anion Gap 8, Blood Urea Nitrogen 2, Creatinine 0.67, Estimat Glomerular Filtration Rate 93, BUN/Creatinine Ratio 3, Glucose Level 54, Calcium Level 7.5 Discharge Home Medications: Active Scripts Active Reported Iron (Ferrous Sulfate) 325 Mg (65 Mg Iron) Tablet 325 Mg PO DAILY Morphine Sulfate ER (Morphine Sulfate) 30 Mg Tablet.er 30 Mg PO Q12H PRN Ondansetron HCl 8 Mg Tablet 8 Mg PO TID PRN Neurontin (Gabapentin) 300 Mg Capsule 300 Mg PO TID Endocet 10-325 mg Tablet (Oxycodone HCl/Acetaminophen) 10 Mg-325 Mg Tablet 1 Ea PO Q6H PRN Pantoprazole Sodium 40 Mg Tablet.dr 40 Mg PO DAILY Diphenoxylate-Atrop 2.5-0.025 (Diphenoxylate HCl/Atropine) 2.5 Mg-0.025 Mg Tablet 2 Ea PO QID PRN Promethazine Tablet (Promethazine HCl) 25 Mg Tablet 25 Mg PO Q6H PRN ALPRAZolam 0.25 Mg Tablet 0.25 Mg PO TID PRN Glimepiride 2 Mg Tablet 2 Mg PO BID Metformin HCl 1,000 Mg Tablet 1,000 Mg PO BID Lisinopril 20 Mg Tablet 20 Mg PO BID Pravastatin Sodium 20 Mg Tablet 20 Mg PO HS Amlodipine Besylate 5 Mg Tablet 5 Mg PO DAILY Instructions to patient/family Please see electronic discharge instructions given to patient. Problem Qualifiers (1) Colon cancer: Colon location: unspecified part of colon Qualified Codes: C18.9 - Malignant neoplasm of colon, unspecified TOMMY CARLSON Aug 02, 2023 11:43
[2023-08-02 12:13] VITALS: BP 150/75
[2023-08-02] MEDS ORDERED: VANC125C5 PO (12:36)
--- NOTE | 2023-08-02 12:40 | Discharge Inst-Simple/Standard ---
Discharge Inst-Standard Discharge Medications New, Converted or Re-Newed RX: Transmitted to Pharmacy Patient Instructions/Follow Up Plan of Care/Instructions/FU: Please continue to take your medications as written. Please follow up with your primary care doctor and your oncologist to follow up this hospital stay. Activity as Tolerated: Yes Discharge Diet: ADA Diet Return to The Hospital For: Fever, worsening diarrhea, nausea, vomiting, chest pain, shortness of breath, if you feel you are getting worse. AZAR MCKEE MD Aug 02, 2023 12:40
== END 2023-08-02 13:56 | disposition home or self-care (01) | DRG 372 ==
LOC: EDUNIT# 11:14 → ER 11:15 → 4TH 15:37 → OBSVTOIN 15:56
PROVIDERS: ADMIT Family Medicine; ATTEND Family Medicine
DX: A04.72 Enterocolitis due to Clostridium difficile, not specified as recurrent (principal); C77.2 Secondary and unspecified malignant neoplasm of intra-abdominal lymph nodes; M96.843 Postprocedural seroma of a musculoskeletal structure following other procedure; E87.6 Hypokalemia; D64.9 Anemia, unspecified; M54.9 Dorsalgia, unspecified; G47.00 Insomnia, unspecified; E78.00 Pure hypercholesterolemia, unspecified; J44.9 Chronic obstructive pulmonary disease, unspecified; I10 Essential (primary) hypertension; K21.9 Gastro-esophageal reflux disease without esophagitis; E11.9 Type 2 diabetes mellitus without complications; F17.210 Nicotine dependence, cigarettes, uncomplicated; F41.9 Anxiety disorder, unspecified; G62.9 Polyneuropathy, unspecified; Z85.038 Personal history of other malignant neoplasm of large intestine; H54.3 Unqualified visual loss, both eyes; Z79.84 Long term (current) use of oral hypoglycemic drugs; Z79.899 Other long term (current) drug therapy; Z91.09 Other allergy status, other than to drugs and biological substances; Z86.73 Personal history of transient ischemic attack (TIA), and cerebral infarction without residual deficits
CPT/HCPCS: 36415; 74177; 80048; 80053; 81000; 82947; 83690; 83735; 85025; 85027; 86141; 87015; 87045; 87046; 87324; 87449; 87899; 89055; 94640; 94760; 96361; 96365; 96375

== ENCOUNTER → 2023-08-20 | Outpatient (CLI) | payer MEDICARE ==
[~2023-08-20] MED LIST changes: +DIPH1TAB25 PO; +FERR-84 PO; +GABA300C PO; +MORP-69 PO; +ONDA-106 PO; +OXYC-191 PO; +PANT40TA52 PO; +VANC125C5 PO
[2023-08-20 09:33] LABS: HEMATOCRIT 35 % (35-52); HEMOGLOBIN 10.9 g/dL (11.5-16.0); MEAN CORPUSCULAR HEMOGLOBIN 30 pg (25-34); MEAN CORPUSCULAR HGB CONC 31 g/dL (32-36); MEAN CORPUSCULAR VOLUME 96 fL (80-99); MEAN PLATELET VOLUME 9.7 fL (9.0-12.2); PLATELET COUNT 375 10^3/uL (130-400); WHITE BLOOD COUNT 10.6 10^3/uL (4.3-11.0)
[2023-08-20 09:58] LABS: BILIRUBIN,TOTAL 0.4 MG/DL (0.1-1.0); CALCIUM 9.2 MG/DL (8.5-10.1); CREATININE SERUM 0.88 MG/DL (0.60-1.30); TOTAL PROTEIN 6.3 GM/DL (6.4-8.2)
[2023-08-20 09:59] LABS: ALBUMIN 3.6 GM/DL (3.2-4.5)
== END ==
LOC: LAB 09:03
PROVIDERS: ATTEND Family Medicine
DX: E11.65 Type 2 diabetes mellitus with hyperglycemia (principal)
CPT/HCPCS: 36415; 80053; 83036; 84443; 85027

== ENCOUNTER 2023-09-03 10:16 | Outpatient (RCR) | payer MEDICARE ==
[2023-07-25 10:47] VITALS: BP 139/71
[2023-08-20 09:28] LABS: BASOPHILS # (AUTO) 0.1 10^3/uL (0.0-0.1); BASOPHILS % (AUTO) 1 % (0-10); EOSINOPHILS # (AUTO) 0.3 10^3/uL (0.0-0.3); EOSINOPHILS % (AUTO) 3 % (0-10); HEMATOCRIT 35 % (35-52); HEMOGLOBIN 10.9 g/dL (11.5-16.0); LYMPHOCYTES # (AUTO) 2.4 10^3/uL (1.0-4.0); LYMPHOCYTES % (AUTO) 22 % (12-44); MEAN CORPUSCULAR HEMOGLOBIN 30 pg (25-34); MEAN CORPUSCULAR HGB CONC 31 g/dL (32-36); MEAN CORPUSCULAR VOLUME 96 fL (80-99); MEAN PLATELET VOLUME 9.6 fL (9.0-12.2); MONOCYTES # (AUTO) 1.3 10^3/uL (0.0-1.0); MONOCYTES % (AUTO) 12 % (0-12); NEUTROPHILS # (AUTO) 6.7 10^3/uL (1.8-7.8); NEUTROPHILS % (AUTO) 62 % (42-75); PLATELET COUNT 377 10^3/uL (130-400); WHITE BLOOD COUNT 10.8 10^3/uL (4.3-11.0)
[2023-08-20 09:53] LABS: ALBUMIN 3.6 GM/DL (3.2-4.5); BILIRUBIN,TOTAL 0.4 MG/DL (0.1-1.0); CALCIUM 9.2 MG/DL (8.5-10.1); CREATININE SERUM 0.88 MG/DL (0.60-1.30); TOTAL PROTEIN 6.3 GM/DL (6.4-8.2)
[~2023-09-03 10:16] MED LIST changes: +ATROPINE INJECTION 0.4 MG/ML SDV IV SCH; +BEVACIZUMAB BVZR IV SCH; +D5W IV SCH; +DEXAMETHASONE SODIUM PHOSPHATE IV SCH; +FAMOTIDINE INJ 20MG/2ML VIAL IV PRN; +FLUOROURACIL IV SCH; +FOSAPREPITANT (CANCER CENTER) 150 MG in NS (IVPB) CANCER CENTER ONLY 150 ML IV SCH; +HEParin (CENTRAL IV FLUSH) 500 UNIT/5 ML SYR IV PRN; +IRINOTECAN HCL IV SCH; +NS IV 1000 ML (CANCER CTR) IV SCH; +NS IV SCH; +PALONOSETRON HCL IV SCH; +diphenhydrAMINE 25 MG TABLET PO SCH
[2023-09-03 10:46] LABS: BASOPHILS # (AUTO) 0.1 10^3/uL (0.0-0.1); BASOPHILS % (AUTO) 1 % (0-10); EOSINOPHILS # (AUTO) 0.3 10^3/uL (0.0-0.3); EOSINOPHILS % (AUTO) 3 % (0-10); HEMATOCRIT 37 % (35-52); HEMOGLOBIN 11.4 g/dL (11.5-16.0); LYMPHOCYTES # (AUTO) 2.2 10^3/uL (1.0-4.0); LYMPHOCYTES % (AUTO) 19 % (12-44); MEAN CORPUSCULAR HEMOGLOBIN 30 pg (25-34); MEAN CORPUSCULAR HGB CONC 31 g/dL (32-36); MEAN CORPUSCULAR VOLUME 97 fL (80-99); MEAN PLATELET VOLUME 9.8 fL (9.0-12.2); MONOCYTES # (AUTO) 1.1 10^3/uL (0.0-1.0); MONOCYTES % (AUTO) 9 % (0-12); NEUTROPHILS # (AUTO) 7.7 10^3/uL (1.8-7.8); NEUTROPHILS % (AUTO) 68 % (42-75); PLATELET COUNT 309 10^3/uL (130-400); WHITE BLOOD COUNT 11.3 10^3/uL (4.3-11.0)
[2023-09-03 12:25] LABS: CLARITY,URINE CLEAR; COLOR,URINE YELLOW
[2023-09-03 12:26] LABS: BILIRUBIN,URINE NEGATIVE (NEGATIVE); GLUCOSE, URINE (UA) NEGATIVE (NEGATIVE); KETONES,URINE NEGATIVE (NEGATIVE); LEUKOCYTE ESTERASE ,URINE 1+ (NEGATIVE); NITRITE,URINE POSITIVE (NEGATIVE); PROTEIN,URINE 2+ (NEGATIVE)
[2023-09-03 12:36] LABS: BACTERIA,URINE MODERATE /HPF; RBC,URINE 50-100 /HPF; WBC,URINE 25-50 /HPF
== END 2023-09-13 | disposition home or self-care (01) ==
LOC: ONC 10:16
PROVIDERS: ATTEND Internal Medicine Hematology & Oncology
DX: C18.2 Malignant neoplasm of ascending colon (principal); C77.2 Secondary and unspecified malignant neoplasm of intra-abdominal lymph nodes; D50.8 Other iron deficiency anemias; I25.10 Atherosclerotic heart disease of native coronary artery without angina pectoris; F41.1 Generalized anxiety disorder; L29.9 Pruritus, unspecified; E04.1 Nontoxic single thyroid nodule; R19.7 Diarrhea, unspecified
CPT/HCPCS: 80053; 82378; 85025; G0463; 36415; 81000; 87088; 99214